=== PATIENT | female | born 1945 | race Caucasian/White ===

== ENCOUNTER 2019-07-10 14:22 | Inpatient (IN) | payer MEDICARE ==
--- NOTE | 2019-07-10 15:18 | EDM.PDOC ---
ED HPI GENERAL MEDICAL PROBLEM - General Chief Complaint: General Stated Complaint: MED[facility] Time Seen by Provider: 07/10/19 15:08 Source of Information: Reports: Patient, Family History Limitations: Reports: No Limitations - History of Present Illness INITIAL COMMENTS - FREE TEXT/NARRATIVE: 74-year-old female brought in by ambulance with worsening weakness, inflammatory ulcerations of the lower extremities, perineal inflammation, and generalized malaise over the past couple of weeks. She did not have any problems with lower extremity edema or rash until 10-14 days ago after she "scrubbed her legs in the shower". She does have diabetes but does not check her glucose levels. She is on oral medication only. She has not been hospitalized for many years, has not seen her primary doctor in 6 months. She is new to the area and looking for a new physician. No fevers or chills, she denies shortness of breath unless active. No chest pain. No nausea vomiting diarrhea or gastrointestinal symptoms. Onset: Gradual Duration: Week(s): (2) Associated Symptoms: Reports: Malaise, Weakness. Denies: Confusion, Chest Pain , Cough, Fever/Chills, Nausea/Vomiting, Shortness of Breath Buttock Pain Score (Numeric/FACES): 2 Right Lower Leg Pain Score (Numeric/FACES): 5 - Related Data Allergies Allergy/AdvReac Type Severity Reaction Status Date / Time niacin Allergy Respiratory Verified 07/10/19 19:27 Distress Home Meds: Home Meds Lisinopril 20 tab PO DAILY 07/10/19 [History] atorvaSTATin Calcium [Atorvastatin Calcium] 40 mg PO DAILY 07/10/19 [History] glipiZIDE [Glipizide ER] 1 tab PO DAILY 07/10/19 [History] hydroCHLOROthiazide [Hydrochlorothiazide] 1 tab PO DAILY 07/10/19 [History] metFORMIN HCl [Metformin HCl] 1,000 mg PO BID 07/10/19 [History] Past Medical History HEENT History: Reports: Impaired Vision Cardiovascular History: Reports: High Cholesterol, Hypertension Gastrointestinal History: Reports: Other (See Below) Other Gastrointestinal History: colo guard negative 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: Musculoskeletal History: Reports: Fracture Other Musculoskeletal History: foot fx, l shoulder fx r hand fx Psychiatric History: Reports: Anxiety Endocrine/Metabolic History: Reports: Diabetes, Type II - Infectious Disease History Infectious Disease History: Reports: Chicken Pox, Measles - Past Surgical History HEENT Surgical History: Reports: Tonsillectomy Dermatological Surgical History: Reports: Other (See Below) Social & Family History - Tobacco Use Smoking Status *Q: Former Smoker Years of Tobacco use: 50 Packs/Tins Daily: 1 Used Tobacco, but Quit: No Second Hand Smoke Exposure: Yes - Caffeine Use Caffeine Use: Reports: Coffee, Soda, Tea - Recreational Drug Use Recreational Drug Use: No ED ROS GENERAL - Review of Systems Review Of Systems: See Below Constitutional: Reports: Malaise. Denies: Fever, Chills HEENT: Denies: Throat Pain Respiratory: Reports: Shortness of Breath (Some shortness of breath with activity) Cardiovascular: Reports: Palpitations. Denies: Chest Pain GI/Abdominal: Denies: Abdominal Pain, Nausea, Vomiting Skin: Reports: Other (Diffuse erythema of the perineal area, erythema with shallow wet ulcerations of both lower extremities.) Neurological: Reports: Weakness. Denies: Headache, Paresthesia Psychiatric: Reports: No Symptoms ED EXAM, GENERAL - Physical Exam Exam: See Below Exam Limited By: No Limitations General Appearance: Alert, No Apparent Distress Eye Exam: Bilateral Eye: EOMI (No jaundice) Head: Atraumatic Respiratory/Chest: No Respiratory Distress, Decreased Breath Sounds (Some decreased breath sounds in the bases, somewhat worse on the right) Cardiovascular: Regular Rate, Rhythm. No: Extra Beats GI/Abdominal: Soft, Non-Tender Extremities: Other (Pitting edema from the groin through the toes bilaterally, cool to touch and decreased pulses in both feet. Erythema with fairly large shallow ulcerations that are moist on both lower extremities.) Neurological: Alert, Oriented, No Motor/Sensory Deficits (Denies sensory deficiencies of the feet with palpation). No: Disoriented, Slow to Respond Psychiatric: Normal Affect, Normal Mood Skin Exam: Erythema (Very malodorous, widespread erythema of the groin and perineum. Creases actually look less involved than surface skin.) Course - Vital Signs Last Recorded V/S: Last Vital Signs Temp 96.7 F 07/11/19 03:00 Pulse 95 07/11/19 03:00 Resp 20 07/11/19 03:00 BP 98/55 L 07/11/19 03:00 Pulse Ox 93 L 07/11/19 03:00 - Orders/Labs/Meds Orders: Medication Orders Acetaminophen (Tylenol) 650 mg PO Q4H PRN PRN Reason: Pain (Mild 1-3)/fever Last Admin: 07/11/19 03:48 Dose: 650 mg Admin: 07/10/19 20:08 Dose: 650 mg Albuterol (Proventil Neb Soln) 2.5 mg NEB Q4H PRN PRN Reason: Shortness Of Breath/wheezing Atorvastatin Calcium (Lipitor) 40 mg PO DAILY [facility] Dimethicone/Zinc Oxide (Rash Relief-Zinc Oxide Jeannette) 0 gm TOP Q2H PRN PRN Reason: groin rash Last Admin: 07/10/19 20:10 Dose: 1 applic Enoxaparin Sodium (Lovenox) 40 mg SUBCUT DAILY [facility] Glipizide (Glucotrol Xl) 10 mg PO DAILY [facility] Magnesium Hydroxide (Milk Of Magnesia) 30 ml PO Q12H PRN PRN Reason: Constipation Melatonin (Melatonin) 9 mg PO BEDTIME PRN PRN Reason: Sleep Last Admin: 07/10/19 23:29 Dose: 9 mg Metformin HCl (Glucophage) 1,000 mg PO BIDMEALS [facility] Nicotine (Habitrol) 14 mg TRDERM DAILY PRN PRN Reason: nicotine craving Last Admin: 07/10/19 20:09 Dose: 14 mg Ondansetron HCl (Zofran Odt) 4 mg PO Q6H PRN PRN Reason: Nausea able to take PO Ondansetron HCl (Zofran) 4 mg IV Q6H PRN PRN Reason: Nausea/Vomiting Oxycodone HCl (Oxycodone) 5 mg PO Q4H PRN PRN Reason: Pain (moderate 4-6) Senna/Docusate Sodium (Senna Plus) 1 tab PO BID PRN PRN Reason: Constipation Labs: Laboratory Tests 07/10/19 07/10/19 07/10/19 Range/Units 15:30 15:30 15:33 WBC 11.7 H (4.5-11.0) K/uL RBC 4.31 (3.30-5.50) M/uL Hgb 11.0 L (12.0-15.0) g/dL Hct 36.3 (36.0-48.0) % MCV 84 (80-98) fL MCH 26 L (27-31) pg MCHC 30 L (32-36) % Plt Count 220 (150-400) K/uL Neut % (Auto) 87 H (36-66) % Lymph % (Auto) 5 L (24-44) % [place] % (Auto) 9 H (2-6) % Eos % (Auto) 0 L (2-4) % Baso % (Auto) 0 (0-1) % Sodium 129 L (140-148) mmol/L Potassium 4.7 (3.6-5.2) mmol/L Chloride 94 L (100-108) mmol/L Carbon Dioxide 24 (21-32) mmol/L Anion Gap 15.7 H (5.0-14.0) mmol/L BUN 31 H (7-18) mg/dL Creatinine 0.7 (0.6-1.0) mg/dL Est Cr Clr Drug Dosing 54.08 mL/min Estimated GFR (MDRD) > 60 (>60) Glucose 180 H (74-106) mg/dL Calcium 8.3 L (8.5-10.1) mg/dL Total Bilirubin 0.5 (0.2-1.0) mg/dL AST 16 (15-37) U/L ALT 15 (12-78) U/L Alkaline Phosphatase 104 (46-116) U/L Total Protein 6.7 (6.4-8.2) g/dL Albumin 2.9 L (3.4-5.0) g/dL Globulin 3.8 H (2.3-3.5) g/dL Albumin/Globulin Ratio 0.8 L (1.2-2.2) Urine Color [place] A (YELLOW) Urine Appearance Slightly cloudy A (CLEAR) Urine pH 5.5 (5.0-8.0) Ur Specific [place] >= 1.030 (1.008-1.030) Urine Protein 30 H (NEGATIVE) mg/dL Urine Glucose (UA) Negative (NEGATIVE) mg/dL Urine Ketones Negative (NEGATIVE) mg/dL Urine Occult Blood Trace-intact H (NEGATIVE) Urine Nitrite Negative (NEGATIVE) Urine Bilirubin Small H (NEGATIVE) Urine Urobilinogen 1.0 (0.2-1.0) EU/dL Ur Leukocyte Esterase Negative (NEGATIVE) Urine RBC 5-10 H (0-5) Urine WBC 0-5 (0-5) Ur Epithelial Cells Not seen Amorphous Sediment Many Urine Bacteria Moderate Urine Mucus Not seen Meds: Medications Generic Name Dose Route Start Last Admin Trade Name Freq PRN Reason Stop Dose Admin Acetaminophen 650 mg 07/10/19 18:37 07/11/19 03:48 Tylenol PO 650 mg Q4H PRN Administration Pain (Mild 1-3)/fever Albuterol 2.5 mg 07/10/19 18:37 Proventil Neb Soln NEB Q4H PRN Shortness Of Breath/wheezing Atorvastatin Calcium 40 mg 07/11/19 09:00 Lipitor PO DAILY [facility] Dimethicone/Zinc Oxide 0 gm 07/10/19 18:37 07/10/19 20:10 Rash Relief-Zinc Oxide Jeannette TOP 1 applic Q2H PRN Administration groin rash Enoxaparin Sodium 40 mg 07/11/19 09:00 Lovenox SUBCUT DAILY [facility] Glipizide 10 mg 07/11/19 09:00 Glucotrol Xl PO DAILY [facility] Magnesium Hydroxide 30 ml 07/10/19 18:37 Milk Of Magnesia PO Q12H PRN Constipation Melatonin 9 mg 07/10/19 18:37 07/10/19 23:29 Melatonin PO 9 mg BEDTIME PRN Administration Sleep Metformin HCl 1,000 mg 07/11/19 08:00 Glucophage PO BIDMEALS [facility] Nicotine 14 mg 07/10/19 18:37 07/10/19 20:09 Habitrol TRDERM 14 mg DAILY PRN Administration nicotine craving Ondansetron HCl 4 mg 07/10/19 18:37 Zofran Odt PO Q6H PRN Nausea able to take PO Ondansetron HCl 4 mg 07/10/19 18:37 Zofran IV Q6H PRN Nausea/Vomiting Oxycodone HCl 5 mg 07/10/19 18:37 Oxycodone PO Q4H PRN Pain (moderate 4-6) Senna/Docusate Sodium 1 tab 07/10/19 18:37 Senna Plus PO BID PRN Constipation - Re-Assessments/Exams Free Text/Narrative Re-Assessment/Exam: 07/10/19 15:27 A quick catheter UA was obtained, CBC CMP and portable chest x-ray. 07/10/19 16:36 White count was 11,700, hemoglobin 11.0. Glucose 180. Kidney function is normal. Electrolytes relatively normal. An ultrasound was ordered of an atrial duplex study of both extremities. Chest x-ray revealed bilateral pleural effusions and likely at least moderate cardiomegaly. Ultrasound of the legs revealed extensive arterial disease but pulses to the feet, no complete obstruction or ischemia. Results were discussed with Dr. Moon and Dr. Mobley, and the decision was made to admit her to the hospitalist service for further evaluation and treatment. 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
--- NOTE | 2019-07-10 16:07 | CRLCR ---
Indication: Weakness. Technique: A single AP portable view of the chest was obtained. Comparison: None Findings: The heart is enlarged. Bibasilar atelectasis and/or infiltrates and small bilateral pleural effusions are identified. No pneumothorax is identified. Impression: Cardiomegaly. Bibasilar atelectasis and/or infiltrates and small bilateral pleural effusions. Dictated by Abigail Castellanos MD @ Jul 10 2019 4:04PM Signed by Dr. Abigail Castellanos @ Jul 10 2019 4:05PM
--- NOTE | 2019-07-10 17:53 | PCM.HP.2 ---
H&P History of Present Illness - General Date of Service: 07/10/19 Admit Problem/Dx: Admission Diagnosis/Problem Admission Diagnosis/Problem Foot ulcer Source of Information: Patient, Family, Provider History Limitations: Reports: No Limitations - History of Present Illness Initial Comments - Free Text/Narative: CC: my feet are bothering me HPI: Анна presents to the emergency room today with concerns that her feet are not healing and are now getting worse. She describes difficulty with redness and drainage of both feet and lower legs for about the past month and a half. Symptoms seem to start after she washed her feet with hot soapy water to clean off some loose and flaky skin. She has had progressive difficulty since that time. She does not report any pain but says that she cannot stand on her feet. There are multiple areas that are open and draining a serosanguineous fluid. She has not noticed any significant erythema or warmth. She says that she's been either bedbound or in a chair for the past several weeks. She is able to ambulate only a couple of feet at a time. She has not had any fevers. She does not report any numbness or tingling. She does endorse some dyspnea with exertion that has been present for about a month and a half. She has not had any chest pain but she does report having what she calls a panic attack. This episode was described as sudden onset of shortness of breath that lasted for less than an hour. She did not have any chest pain at that time. She has not had a return of this type of episode since then. She has not had a change in bladder habits. She did have diarrhea for the past several days and now has erythema and discomfort in her perineum. She has lost more than 50 pounds in several months but reports that she has been trying to do so to help control her diabetes. She does not check her blood sugars regularly. She has been trying to quit smoking but with all of her stress recently she has started again. She is not smoking much because she's sleeping much of the day. Appetite has been diminished. Energy has been diminished. Workup in the emergency room today revealed mild hyponatremia and a mildly elevated white blood cell count. Chest x-ray showed enlarged heart and possible small bilateral effusions. A vascular ultrasound was obtained and did not show any significant focal stenosis in the lower extremities. She will be admitted for wound care consultation and expedited workup. Buttock Pain Score (Numeric/FACES): 2 - Related Data Allergies/Adverse Reactions: Allergies Allergy/AdvReac Type Severity Reaction Status Date / Time niacin Allergy Respiratory Verified 07/10/19 14:45 Distress Home Medications: Home Meds Lisinopril 20 tab PO DAILY 07/10/19 [History] atorvaSTATin Calcium [Atorvastatin Calcium] 40 mg PO DAILY 07/10/19 [History] glipiZIDE [Glipizide ER] 1 tab PO DAILY 07/10/19 [History] hydroCHLOROthiazide [Hydrochlorothiazide] 1 tab PO DAILY 07/10/19 [History] metFORMIN HCl [Metformin HCl] 1,000 mg PO BID 07/10/19 [History] Past Medical History HEENT History: Reports: Impaired Vision Cardiovascular History: Reports: High Cholesterol, Hypertension Gastrointestinal History: Reports: Other (See Below) Other Gastrointestinal History: colo guard negative 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: Musculoskeletal History: Reports: Fracture Other Musculoskeletal History: foot fx, l shoulder fx r hand fx Psychiatric History: Reports: Anxiety Endocrine/Metabolic History: Reports: Diabetes, Type II - Infectious Disease History Infectious Disease History: Reports: Chicken Pox, Measles - Past Surgical History HEENT Surgical History: Reports: Tonsillectomy Dermatological Surgical History: Reports: Other (See Below) Social & Family History - Family History Endocrine/Metabolic: Reports: Diabetes, type II (mother) - Tobacco Use Smoking Status *Q: Former Smoker Years of Tobacco use: 50 Packs/Tins Daily: 1 Used Tobacco, but Quit: No Second Hand Smoke Exposure: Yes - Caffeine Use Caffeine Use: Reports: Coffee, Soda, Tea - Alcohol Use Alcohol Use History: No - Recreational Drug Use Recreational Drug Use: No H&P Review of Systems - Review of Systems: Review Of Systems: See Below Free Text/Narrative: A complete 12 point review of systems was obtained. Pertinent positives and negatives are noted in the history of present illness. All other systems were reviewed and were negative except as noted. Exam - Exam Exam: See Below - Vital Signs Vital Signs: Last Vital Signs Temp 36.6 C 07/10/19 17:09 Pulse 108 H 07/10/19 17:09 Resp 16 07/10/19 17:09 BP 120/75 07/10/19 17:09 Pulse Ox 95 07/10/19 17:09 Weight: 603.278 kg - Exam Quality Assessment: No: Supplemental Oxygen General: Alert, Oriented, Cooperative. No: Mild Distress HEENT: Conjunctiva Clear. No: Mucosa Moist & Standing [place] (dry), Scleral Icterus Neck: Supple, Trachea Midline. No: Lymphadenopathy, JVD, Thyromegaly Lungs: Clear to Auscultation, Normal Respiratory Effort. No: Wheezing Cardiovascular: Regular Rhythm, Tachycardia. No: Systolic Murmur GI/Abdominal Exam: Normal Bowel Sounds, Soft, Non-Tender, No Distention, No Mass Back Exam: Other (kyophosis ). No: Full Range of Motion Extremities: Other (both feet and lower legs redened and cold. Multiple ulcrations on lower legs, dorsum of feet and plantar surfaces of feet, clement left foot near toes). No: Normal Capillary Refill, Pedal Edema, Increased Warmth Peripheral Pulses: 0: Dorsalis Pedis (L), Dorsalis Pedis (R) Skin: Dry. No: Rash Neuro Extensive - Mental Status: Alert, Oriented x3, Nl Response to Commands Neuro Extensive - Motor, Sensory, Reflexes: No: Dysarthria, Abnormal Motor, Tremor Psychiatric: Alert, Normal Affect - Patient Data Lab Results Last 24 hrs: Laboratory Results - last 24 hr 07/10/19 07/10/19 07/10/19 Range/Units 15:30 15:30 15:33 WBC 11.7 H (4.5-11.0) K/uL RBC 4.31 (3.30-5.50) M/uL Hgb 11.0 L (12.0-15.0) g/dL Hct 36.3 (36.0-48.0) % MCV 84 (80-98) fL MCH 26 L (27-31) pg MCHC 30 L (32-36) % Plt Count 220 (150-400) K/uL Neut % (Auto) 87 H (36-66) % Lymph % (Auto) 5 L (24-44) % [place] % (Auto) 9 H (2-6) % Eos % (Auto) 0 L (2-4) % Baso % (Auto) 0 (0-1) % Sodium 129 L (140-148) mmol/L Potassium 4.7 (3.6-5.2) mmol/L Chloride 94 L (100-108) mmol/L Carbon Dioxide 24 (21-32) mmol/L Anion Gap 15.7 H (5.0-14.0) mmol/L BUN 31 H (7-18) mg/dL Creatinine 0.7 (0.6-1.0) mg/dL Est Cr Clr Drug Dosing 54.08 mL/min Estimated GFR (MDRD) > 60 (>60) Glucose 180 H (74-106) mg/dL Calcium 8.3 L (8.5-10.1) mg/dL Total Bilirubin 0.5 (0.2-1.0) mg/dL AST 16 (15-37) U/L ALT 15 (12-78) U/L Alkaline Phosphatase 104 (46-116) U/L Total Protein 6.7 (6.4-8.2) g/dL Albumin 2.9 L (3.4-5.0) g/dL Globulin 3.8 H (2.3-3.5) g/dL Albumin/Globulin Ratio 0.8 L (1.2-2.2) Urine Color [place] A (YELLOW) Urine Appearance Slightly cloudy A (CLEAR) Urine pH 5.5 (5.0-8.0) Ur Specific [place] >= 1.030 (1.008-1.030) Urine Protein 30 H (NEGATIVE) mg/dL Urine Glucose (UA) Negative (NEGATIVE) mg/dL Urine Ketones Negative (NEGATIVE) mg/dL Urine Occult Blood Trace-intact H (NEGATIVE) Urine Nitrite Negative (NEGATIVE) Urine Bilirubin Small H (NEGATIVE) Urine Urobilinogen 1.0 (0.2-1.0) EU/dL Ur Leukocyte Esterase Negative (NEGATIVE) Urine RBC 5-10 H (0-5) Urine WBC 0-5 (0-5) Ur Epithelial Cells Not seen Amorphous Sediment Many Urine Bacteria Moderate Urine Mucus Not seen Result Diagrams: 07/10/19 15:30 07/10/19 15:30 Imaging Impressions Last 24 hrs: CXR - images personally reviewed - heart size enlarged, small effusions possible in both lower lungs. No obvious mass or infiltrate. no comparison available. *Q Meaningful Use (ADM) - VTE *Q VTE Mechanical Contraindications *Q: Bilateral Lower Dermatits - VTE Risk Assess *Q Each Risk Factor Represents 1 Point: Swollen Legs, Current Total Score 1 Point Risk Factors: 1 Each Risk Factor Represents 2 Points: None Total Score 2 Point Risk Factors: 0 Each Risk Factor Represents 3 Points: Age 75 Years or Greater Total Score 3 Point Risk Factors: 3 Each Risk Factor Represents 5 Points: None Total Score 5 Point Risk Factors: 0 Venous Thromboembolism Risk Factor Score *Q: 4 - Problem List (1) Foot ulcer due to secondary DM SNOMED Code(s): 0822091 ICD Code: E13.621 - OTHER SPECIFIED DIABETES MELLITUS WITH FOOT ULCER; L97.509 - NON-PRESSURE CHRONIC ULCER OTH PRT UNSP FOOT W UNSP SEVERITY Status : Acute Current Visit: Yes (2) Weight loss, unintentional SNOMED Code(s): 659444870 ICD Code: R63.4 - ABNORMAL WEIGHT LOSS Status: Acute Current Visit: Yes (3) Diabetes mellitus type II, controlled SNOMED Code(s): 92646029, 309174957 ICD Code: E11.9 - TYPE 2 DIABETES MELLITUS WITHOUT COMPLICATIONS Status: Chronic Current Visit: Yes Qualifiers: Diabetes mellitus long term care social worker insulin use: without long term care social worker use Diabetes mellitus complication status: with unspecified complications Qualified Code(s) : E11.8 - Type 2 diabetes mellitus with unspecified complications (4) Tobacco dependence syndrome SNOMED Code(s): 30582496 ICD Code: F17.200 - NICOTINE DEPENDENCE, UNSPECIFIED, UNCOMPLICATED Status : Chronic Current Visit: Yes Problem List Initiated/Reviewed/Updated: Yes Orders Last 24hrs: Active Orders 24 hr Category Date Time Status Patient Status Manage Transfer [TRANSFER] Routine ADT 07/10/19 17:39 Ordered VL Duplex Lwr Ext Art Comp Bi [US] Stat Exams 07/10/19 16:04 Taken Resuscitation Status Routine Resus Stat 07/10/19 17:40 Ordered Assessment/Plan Comment:: ASSESSMENT AND PLAN - Bilateral lower extremity dermatitis with ulceration - initially there was concern for ischemia but no focal stenosis found with the vascular ultrasound. Proximal lower extremities are warm and well-perfused. She may still have a more proximal obstruction. This does not quite fit the picture for congestive heart failure. Vasculitis presentation would be atypical. This may be a chemical burn resulting from her cleansing of her lower extremities 6 weeks ago. -Wound care consultation with Dr. Moon in the morning -Echocardiogram to look for evidence for congestive heart failure -SADIE and ANCA to look for possible vasculitis -Sedimentation rate and CRP Weight loss, somewhat unintentional - patient reports she has been trying to lose weight but has lost more than 50 pounds in just a few months. I do have some concerns that there may be an occult malignancy but no specific symptoms to point towards a location. No obvious lung cancer noted on chest x-ray. -TSH and inflammatory markers as above Type 2 diabetes mellitus - patient denies symptoms but I suspect there may be a component of neuropathy with no significant pain in her lower extremities. She reports good control by history. -Continue home medications -A1c in the morning Tobacco dependence - patient had a period of cessation but has started again because of stressors. -Encourage cessation -Nicotine patch Maintenance issues - - DVT prophylaxis - enoxaparin - GI prophylaxis - not indicated - Nutrition - diabetic diet - Encinas catheter - not indicated CODE STATUS - DNR/DNI Admission justification - patient will be referred to observation for expedited workup and wound care consultation Disposition - I would anticipate discharge home after the hospital stay Primary care physician - no local primary care as of yet Jarek Mobley M.D. - Mortality Measure Prognosis:: Good
--- NOTE | 2019-07-10 18:03 | CRLUS ---
INDICATION: Lack of vascular flow, and ischemic changes in the feet. COMPARISON: None available. TECHNIQUE: Duplex arterial ultrasound examination of bilateral lower extremities was performed with 2D and spectral analysis and color Doppler imaging. FINDINGS: In the right lower extremity there is a biphasic waveform in the common femoral artery. A large coral reef plaque with within the distal common femoral artery, or at the origin of the SFA is seen which obscures the majority of the vessel, and appears to significantly narrow the vessel in that location. There is however only a focal velocity shift of slightly greater than 2-1 in that location. In addition multiphasic waveforms are seen within the SFA. Biphasic waveform at the origin of the profunda femoral artery. Multiphasic waveforms also seen in the popliteal artery. The posterior tibial artery demonstrates multiphasic waveforms. Low velocity biphasic waveforms are seen in the distal anterior tibia artery (11.2 cm/sec). Monophasic waveforms are seen in the dorsalis pedis artery. Rim calcified vessels are seen predominantly in the lower extremity/calf. Minimal if any detectable flow seen in the peroneal artery. Extensive subcutaneous edema is seen in the posterior aspect of the knee, and within the calf. In the left lower extremity biphasic waveforms are seen in the common femoral artery, and within the SFA. No focal velocities shifts were detected. Biphasic waveform at the origin of the profunda femoral artery. Biphasic waveforms are seen in the popliteal artery. Biphasic waveforms are seen in the posterior tibial artery proximally with monophasic waveforms distally. Biphasic waveforms are seen in the distal anterior tibial artery with a velocity of 21.7 cm/second with very dampened monophasic waveform seen in the dorsalis pedis artery. Minimal if any detectable flow seen in the peroneal artery. Rim calcified vessels are seen predominantly in the lower extremity/calf. Extensive subcutaneous edema is seen in the posterior aspect of the knee, and within the calf. IMPRESSION: 1. Atherosclerotic disease. 2. Approximately moderate severity stenosis by ultrasound in the proximal right SFA or distal common femoral artery due to coral reef plaque. 3. Bilateral lower extremity runoff disease. 4. Extensive subcutaneous edema in the posterior knee and calf. Dictated by Tonio Helm MD @ Jul 10 2019 5:53PM (Electronically Signed)
[2019-07-10] MEDS ORDERED: Albuterol 0.083% 2.5 MG/3 ML Neb Soln NEB PRN (18:37)
[2019-07-10] MEDS ORDERED: Magnesium Hydroxide 400 MG/5 ML Susp 30 ML Cup PO PRN (18:37)
[2019-07-10] MEDS ORDERED: Dimethicone 20%/Zinc Oxide 25% 56 GM Spray Bottle TOP PRN (18:37)
[2019-07-10] MEDS ORDERED: Ondansetron 4 MG/2 ML SDV IV PRN (18:37)
[2019-07-10] MEDS ORDERED: oxyCODONE 5 MG Tab PO PRN (18:37)
[2019-07-10] MEDS ORDERED: Ondansetron 4 MG Tab.DIS PO PRN (18:37)
[2019-07-10] MEDS: Acetaminophen 325 MG Tab PO PRN (20:08)
[2019-07-10] MEDS: Nicotine 14 MG/24 Hr Patch TRDERM PRN (20:09)
[2019-07-10] MEDS: Melatonin 3 MG Tab PO PRN (23:29)
[2019-07-11] MEDS: Acetaminophen 325 MG Tab PO PRN (03:48)
[2019-07-11] MEDS ORDERED: glipiZIDE 5 MG Tab.ER PO SCH (08:00)
[2019-07-11] MEDS ORDERED: metFORMIN 500 MG Tab PO SCH (08:00)
[2019-07-11] MEDS: GLIPIZIDE 10 MG PO SCH (08:42)
[2019-07-11] MEDS: Enoxaparin 40 MG/0.4 ML Syringe SUBCUT SCH (08:43)
[2019-07-11 09:53] LABS: HEMOGLOBIN A1C 7.4 % (4.5-6.2)
--- NOTE | 2019-07-11 10:05 | PCM.PN ---
- General Info Date of Service: 07/11/19 Subjective Update: No acute events overnight following admission. She did have one episode of mild pain in her feet but this is better. Did not sleep well because of an uncomfortable bed. She did not have any fevers. No complaints of abdominal pain or nausea. She was seen by Dr. Moon this morning. Functional Status: Reports: Pain Controlled, Tolerating Diet - Review of Systems General: Denies: Fever Pulmonary: Reports: Shortness of Breath Musculoskeletal: Reports: Foot Pain - Patient Data Vitals - Most Recent: Last Vital Signs Temp 36.5 C 07/11/19 07:00 Pulse 89 07/11/19 07:00 Resp 18 07/11/19 07:00 BP 93/54 L 07/11/19 07:00 Pulse Ox 93 L 07/11/19 07:00 Weight - Most Recent: 63.004 kg I&O - Last 24 Hours: Intake & Output 07/10/19 07/11/19 07/11/19 22:59 06:59 14:59 Output Total 125 Balance -125 Lab Results Last 24 Hours: Laboratory Results - last 24 hr 07/10/19 07/10/19 07/10/19 Range/Units 15:30 15:30 15:33 WBC 11.7 H (4.5-11.0) K/uL RBC 4.31 (3.30-5.50) M/uL Hgb 11.0 L (12.0-15.0) g/dL Hct 36.3 (36.0-48.0) % MCV 84 (80-98) fL MCH 26 L (27-31) pg MCHC 30 L (32-36) % Plt Count 220 (150-400) K/uL Neut % (Auto) 87 H (36-66) % Lymph % (Auto) 5 L (24-44) % [place] % (Auto) 9 H (2-6) % Eos % (Auto) 0 L (2-4) % Baso % (Auto) 0 (0-1) % ESR (0-25) mm/hr Sodium 129 L (140-148) mmol/L Potassium 4.7 (3.6-5.2) mmol/L Chloride 94 L (100-108) mmol/L Carbon Dioxide 24 (21-32) mmol/L Anion Gap 15.7 H (5.0-14.0) mmol/L BUN 31 H (7-18) mg/dL Creatinine 0.7 (0.6-1.0) mg/dL Est Cr Clr Drug Dosing 54.08 mL/min Estimated GFR (MDRD) > 60 (>60) Glucose 180 H (74-106) mg/dL Calcium 8.3 L (8.5-10.1) mg/dL Total Bilirubin 0.5 (0.2-1.0) mg/dL AST 16 (15-37) U/L ALT 15 (12-78) U/L Alkaline Phosphatase 104 (46-116) U/L C-Reactive Protein (0.0-0.3) mg/dL Total Protein 6.7 (6.4-8.2) g/dL Albumin 2.9 L (3.4-5.0) g/dL Globulin 3.8 H (2.3-3.5) g/dL Albumin/Globulin Ratio 0.8 L (1.2-2.2) TSH, Ultra Sensitive (0.358-3.740) uIU/mL Urine Color [place] A (YELLOW) Urine Appearance Slightly cloudy A (CLEAR) Urine pH 5.5 (5.0-8.0) Ur Specific [place] >= 1.030 (1.008-1.030) Urine Protein 30 H (NEGATIVE) mg/dL Urine Glucose (UA) Negative (NEGATIVE) mg/dL Urine Ketones Negative (NEGATIVE) mg/dL Urine Occult Blood Trace-intact H (NEGATIVE) Urine Nitrite Negative (NEGATIVE) Urine Bilirubin Small H (NEGATIVE) Urine Urobilinogen 1.0 (0.2-1.0) EU/dL Ur Leukocyte Esterase Negative (NEGATIVE) Urine RBC 5-10 H (0-5) Urine WBC 0-5 (0-5) Ur Epithelial Cells Not seen Amorphous Sediment Many Urine Bacteria Moderate Urine Mucus Not seen 07/11/19 07/11/19 Range/Units 04:00 04:00 WBC 12.7 H (4.5-11.0) K/uL RBC 4.33 (3.30-5.50) M/uL Hgb 11.1 L (12.0-15.0) g/dL Hct 36.6 (36.0-48.0) % MCV 85 (80-98) fL MCH 26 L (27-31) pg MCHC 30 L (32-36) % Plt Count 217 (150-400) K/uL Neut % (Auto) (36-66) % Lymph % (Auto) (24-44) % [place] % (Auto) (2-6) % Eos % (Auto) (2-4) % Baso % (Auto) (0-1) % ESR 20 (0-25) mm/hr Sodium 129 L (140-148) mmol/L Potassium 4.8 (3.6-5.2) mmol/L Chloride 94 L (100-108) mmol/L Carbon Dioxide 25 (21-32) mmol/L Anion Gap 14.8 H (5.0-14.0) mmol/L BUN 34 H (7-18) mg/dL Creatinine 0.8 (0.6-1.0) mg/dL Est Cr Clr Drug Dosing 47.32 mL/min Estimated GFR (MDRD) > 60 (>60) Glucose 189 H (74-106) mg/dL Calcium 8.5 (8.5-10.1) mg/dL Total Bilirubin (0.2-1.0) mg/dL AST (15-37) U/L ALT (12-78) U/L Alkaline Phosphatase (46-116) U/L C-Reactive Protein 5.43 H (0.0-0.3) mg/dL Total Protein (6.4-8.2) g/dL Albumin (3.4-5.0) g/dL Globulin (2.3-3.5) g/dL Albumin/Globulin Ratio (1.2-2.2) TSH, Ultra Sensitive 0.966 (0.358-3.740) uIU/mL Urine Color (YELLOW) Urine Appearance (CLEAR) Urine pH (5.0-8.0) Ur Specific [place] (1.008-1.030) Urine Protein (NEGATIVE) mg/dL Urine Glucose (UA) (NEGATIVE) mg/dL Urine Ketones (NEGATIVE) mg/dL Urine Occult Blood (NEGATIVE) Urine Nitrite (NEGATIVE) Urine Bilirubin (NEGATIVE) Urine Urobilinogen (0.2-1.0) EU/dL Ur Leukocyte Esterase (NEGATIVE) Urine RBC (0-5) Urine WBC (0-5) Ur Epithelial Cells Amorphous Sediment Urine Bacteria Urine Mucus Med Orders - Current: Current Medications Acetaminophen (Tylenol) 650 mg PO Q4H PRN PRN Reason: Pain (Mild 1-3)/fever Last Admin: 07/11/19 03:48 Dose: 650 mg Albuterol (Proventil Neb Soln) 2.5 mg NEB Q4H PRN PRN Reason: Shortness Of Breath/wheezing Dimethicone/Zinc Oxide (Rash Relief-Zinc Oxide [place]) 0 gm TOP Q2H PRN PRN Reason: groin rash Last Admin: 07/10/19 20:10 Dose: 1 applic Enoxaparin Sodium (Lovenox) 40 mg SUBCUT DAILY [facility] Last Admin: 07/11/19 08:43 Dose: 40 mg Cefazolin Sodium/Dextrose 1 gm (/ Premix) 50 mls @ 100 mls/hr IV Q8H [facility] Magnesium Hydroxide (Milk Of Magnesia) 30 ml PO Q12H PRN PRN Reason: Constipation Melatonin (Melatonin) 9 mg PO BEDTIME PRN PRN Reason: Sleep Last Admin: 07/10/19 23:29 Dose: 9 mg Nicotine (Habitrol) 14 mg TRDERM DAILY PRN PRN Reason: nicotine craving Last Admin: 07/10/19 20:09 Dose: 14 mg Atorvastatin 40mg * (Pom*) 1 each PO DAILY [facility] Last Admin: 07/11/19 08:42 Dose: 1 each Glipizide Er 10mg * (Pom*) 1 each PO DAILY@0800 [facility] Last Admin: 07/11/19 08:42 Dose: 1 each Metformin 1000mg * (Pom*) 1 each PO BIDMEALS [facility] Last Admin: 07/11/19 08:42 Dose: 1 each Ondansetron HCl (Zofran Odt) 4 mg PO Q6H PRN PRN Reason: Nausea able to take PO Ondansetron HCl (Zofran) 4 mg IV Q6H PRN PRN Reason: Nausea/Vomiting Oxycodone HCl (Oxycodone) 5 mg PO Q4H PRN PRN Reason: Pain (moderate 4-6) Senna/Docusate Sodium (Senna Plus) 1 tab PO BID PRN PRN Reason: Constipation Discontinued Medications Glipizide (Glucotrol Xl) 10 mg PO DAILY@0800 [facility] Metformin HCl (Glucophage) 1,000 mg PO BIDMEALS ANNIE - Exam Quality Assessment: Supplemental Oxygen General: Alert, Oriented, Cooperative, No Acute Distress Lungs: Clear to Auscultation, Normal Respiratory Effort Cardiovascular: Regular Rate, Regular Rhythm, Murmurs GI/Abdominal Exam: Soft, No Distention Extremities: No Pedal Edema. No: Increased Warmth Skin: Warm, Dry Psy/Mental Status: Alert, Normal Affect - Problem List & Annotations (1) Foot ulcer due to secondary DM SNOMED Code(s): 8867414 Code(s): E13.621 - OTHER SPECIFIED DIABETES MELLITUS WITH FOOT ULCER; L97.509 - NON-PRESSURE CHRONIC ULCER OTH PRT UNSP FOOT W UNSP SEVERITY Status : Acute Current Visit: Yes (2) Weight loss, unintentional SNOMED Code(s): 471940785 Code(s): R63.4 - ABNORMAL WEIGHT LOSS Status: Acute Current Visit: Yes (3) Diabetes mellitus type II, controlled SNOMED Code(s): 13506099, 573116798 Code(s): E11.9 - TYPE 2 DIABETES MELLITUS WITHOUT COMPLICATIONS Status: Chronic Current Visit: Yes Qualifiers: Diabetes mellitus detention insulin use: without detention use Diabetes mellitus complication status: with unspecified complications Qualified Code(s) : E11.8 - Type 2 diabetes mellitus with unspecified complications (4) Tobacco dependence syndrome SNOMED Code(s): 70250840 Code(s): F17.200 - NICOTINE DEPENDENCE, UNSPECIFIED, UNCOMPLICATED Status: Chronic Current Visit: Yes - Problem List Review Problem List Initiated/Reviewed/Updated: Yes - My Orders Last 24 Hours: My Active Orders 07/10/19 17:40 Resuscitation Status Routine 07/10/19 18:37 Patient Status [ADT] Routine Intake and Output [RC] QSHIFT Notify Provider Consults [RC] ASDIRECTED Notify Provider Vital Signs [RC] ASDIRECTED Oxygen Therapy [RC] PRN RT Aerosol Therapy [RC] ASDIRECTED Up With Assistance [RC] ASDIRECTED VTE/DVT Education [RC] Per Unit Routine Vital Signs [RC] Q4H Consult to Physician [CONS] Routine Acetaminophen [Tylenol] 650 mg PO Q4H PRN Albuterol [Proventil Neb Soln] 2.5 mg NEB Q4H PRN Dimethicone/Zinc Oxide [Rash Relief-Zinc Oxide [place]] 0 gm TOP Q2H PRN Docusate Sodium/Sennosides [Senna Plus] 1 tab PO BID PRN Magnesium Hydroxide [Milk of Magnesia] 30 ml PO Q12H PRN Melatonin 9 mg PO BEDTIME PRN Nicotine [Habitrol] 14 mg TRDERM DAILY PRN Ondansetron [Zofran ODT] 4 mg PO Q6H PRN Ondansetron [Zofran] 4 mg IV Q6H PRN oxyCODONE 5 mg PO Q4H PRN VTE Mechanical Contraindications [AST] Routine 07/10/19 Dinner Consistent Carbohydrate Diet [DIET] 07/11/19 04:00 GLYCOSYLATED HEMOGLOBIN,HGBA1C [CHEM] AM 07/11/19 05:11 SADIE W/REFLEX AM ANCA PANEL AM 07/11/19 07:00 Echo Comp wo Cont [US] Routine 07/11/19 08:30 Non-Formulary Medication [NF Drug] 1 each PO BIDMEALS Non-Formulary Medication [NF Drug] 1 each PO DAILY@0800 07/11/19 09:00 Enoxaparin [Lovenox] 40 mg SUBCUT DAILY Non-Formulary Medication [NF Drug] 1 each PO DAILY 07/11/19 10:02 PT Evaluation and Treatment [CONS] Routine 07/11/19 10:03 Discontinue Telemetry Monitoring [Cardiac Monitoring Discontinue] [RC] Click to Edit 07/11/19 10:04 PROCALCITONIN [CHEM] Routine 07/12/19 05:00 BASIC METABOLIC PANEL,BMP [CHEM] Timed CBC W/O DIFF,HEMOGRAM [HEME] Timed (1) 07/12/19 07:00 Echo Comp wo Cont [US] Routine - Plan Plan:: ASSESSMENT AND PLAN - Bilateral lower extremity dermatitis with ulceration - concern for progression to critical limb ischemia. Moderate proximal obstruction and significant distal/ runoff disease. Discussed with interventional radiology in [place] and they did recommend follow-up for intervention in the near future (1 or 2 weeks). Pro- calcitonin normal but IR did recommend prophylactic antibiotics with poor blood flow. Sedimentation rate normal so vasculitis unlikely. CRP moderately elevated. -Wound care consultation with Dr. Moon -Empiric cefazolin while hospitalized and cephalexin after discharge -Echocardiogram to look for evidence for congestive heart failure -SADIE and ANCA pending -Outpatient follow-up with interventional radiology next week ([phone] - IR appt at time of d/c) -Physical therapy Weight loss, somewhat unintentional - patient reports she has been trying to lose weight but has lost more than 50 pounds in just a few months.Thyroid testing is normal. Type 2 diabetes mellitus - patient denies symptoms but I suspect there may be a component of neuropathy with no significant pain in her lower extremities. Hemoglobin A1c is 7.4. -Continue home medications Tobacco dependence - patient had a period of cessation but has started again because of stressors. -Encourage cessation -Nicotine patch Maintenance issues - - DVT prophylaxis - enoxaparin - GI prophylaxis - not indicated - Nutrition - diabetic diet Admission justification - patient will be referred to observation for expedited workup and wound care consultation Disposition - I would anticipate discharge home after the hospital stay, likely tomorrow if stable overnight Primary care physician - no local primary care as of yet Jarek Mobley M.D.
[2019-07-11] MEDS: ceFAZolin 1 GM in Premix Bag 1 BAG IV SCH ×2 (10:24→17:09)
[2019-07-12] MEDS: ceFAZolin 1 GM in Premix Bag 1 BAG IV SCH ×2 (01:59→08:58)
[2019-07-12] MEDS: Enoxaparin 40 MG/0.4 ML Syringe SUBCUT SCH (08:57)
[2019-07-12] MEDS: GLIPIZIDE 10 MG PO SCH (08:57)
[2019-07-12] MEDS: Acetaminophen 325 MG Tab PO PRN ×2 (08:58→22:20)
[2019-07-12] MEDS ORDERED: Furosemide 40 MG/4 ML VIAL IVPUSH ONE (10:50)
--- NOTE | 2019-07-12 14:18 | PCM.PN ---
- General Info Date of Service: 07/12/19 Subjective Update: There were no acute events overnight. He shouldn't intermittently has some mild pain in both of her lower extremities. She does continue to require supplemental oxygen. She feels short of breath but has not had chest pain. Echocardiogram this morning showed mildly reduced systolic function, severe aortic stenosis, moderate aortic insufficiency, severe mitral and tricuspid insufficiency as well as mild inferolateral wall motion abnormalities. I did talk to cardiothoracic surgery team at [facility] in [place]. They recommended outpatient cardiology evaluation and consideration for surgical intervention. Functional Status: Reports: Pain Controlled, Tolerating Diet - Review of Systems General: Reports: Weakness Pulmonary: Reports: Shortness of Breath - Patient Data Vitals - Most Recent: Last Vital Signs Temp 36.8 C 07/12/19 10:42 Pulse 93 07/12/19 10:42 Resp 20 07/12/19 10:42 BP 91/56 L 07/12/19 10:42 Pulse Ox 98 07/12/19 10:42 Weight - Most Recent: 63.004 kg I&O - Last 24 Hours: Intake & Output 07/11/19 07/12/19 07/12/19 22:59 06:59 14:59 Intake Total 530 50 350 Output Total 100 150 200 Balance 430 -100 150 Lab Results Last 24 Hours: Laboratory Results - last 24 hr 07/12/19 07/12/19 Range/Units 04:24 04:24 WBC 9.2 (4.5-11.0) K/uL RBC 4.24 (3.30-5.50) M/uL Hgb 10.6 L (12.0-15.0) g/dL Hct 36.1 (36.0-48.0) % MCV 85 (80-98) fL MCH 25 L (27-31) pg MCHC 29 L (32-36) % Plt Count 216 (150-400) K/uL Sodium 130 L (140-148) mmol/L Potassium 4.9 (3.6-5.2) mmol/L Chloride 95 L (100-108) mmol/L Carbon Dioxide 26 (21-32) mmol/L Anion Gap 13.9 (5.0-14.0) mmol/L BUN 38 H (7-18) mg/dL Creatinine 0.9 (0.6-1.0) mg/dL Est Cr Clr Drug Dosing 42.06 mL/min Estimated GFR (MDRD) > 60 (>60) Glucose 134 H (74-106) mg/dL Calcium 8.4 L (8.5-10.1) mg/dL Med Orders - Current: Current Medications Acetaminophen (Tylenol) 650 mg PO Q4H PRN PRN Reason: Pain (Mild 1-3)/fever Last Admin: 07/12/19 08:58 Dose: 650 mg Albuterol (Proventil Neb Soln) 2.5 mg NEB Q4H PRN PRN Reason: Shortness Of Breath/wheezing Dimethicone/Zinc Oxide (Rash Relief-Zinc Oxide [place]) 0 gm TOP Q2H PRN PRN Reason: groin rash Last Admin: 07/10/19 20:10 Dose: 1 applic Enoxaparin Sodium (Lovenox) 40 mg SUBCUT DAILY [facility] Last Admin: 07/12/19 08:57 Dose: 40 mg Cefazolin Sodium/Dextrose 1 gm (/ Premix) 50 mls @ 100 mls/hr IV Q8H [facility] Stop: 07/12/19 16:00 Last Admin: 07/12/19 08:58 Dose: 100 mls/hr Magnesium Hydroxide (Milk Of Magnesia) 30 ml PO Q12H PRN PRN Reason: Constipation Melatonin (Melatonin) 9 mg PO BEDTIME PRN PRN Reason: Sleep Last Admin: 07/10/19 23:29 Dose: 9 mg Nicotine (Habitrol) 14 mg TRDERM DAILY PRN PRN Reason: nicotine craving Last Admin: 07/10/19 20:09 Dose: 14 mg Atorvastatin 40mg * (Pom*) 1 each PO DAILY [facility] Last Admin: 07/12/19 08:58 Dose: 1 each Glipizide Er 10mg * (Pom*) 1 each PO DAILY@0800 [facility] Last Admin: 07/12/19 08:57 Dose: 1 each Metformin 1000mg * (Pom*) 1 each PO BIDMEALS [facility] Last Admin: 07/12/19 08:57 Dose: 1 each Ondansetron HCl (Zofran Odt) 4 mg PO Q6H PRN PRN Reason: Nausea able to take PO Ondansetron HCl (Zofran) 4 mg IV Q6H PRN PRN Reason: Nausea/Vomiting Oxycodone HCl (Oxycodone) 5 mg PO Q4H PRN PRN Reason: Pain (moderate 4-6) Senna/Docusate Sodium (Senna Plus) 1 tab PO BID PRN PRN Reason: Constipation Last Admin: 07/12/19 08:58 Dose: 1 tab Discontinued Medications Furosemide (Lasix) 20 mg IVPUSH NOW ONE Stop: 07/12/19 10:51 Last Admin: 07/12/19 10:59 Dose: 20 mg Glipizide (Glucotrol Xl) 10 mg PO DAILY@0800 [facility] Metformin HCl (Glucophage) 1,000 mg PO BIDMEALS ANNIE - Exam Quality Assessment: Supplemental Oxygen General: Alert, Oriented, Cooperative, No Acute Distress Lungs: Clear to Auscultation, Normal Respiratory Effort Cardiovascular: Regular Rate, Regular Rhythm, Murmurs GI/Abdominal Exam: Soft, No Distention Extremities: Pedal Edema. No: Increased Warmth Psy/Mental Status: Alert, Normal Affect - Problem List & Annotations (1) Foot ulcer due to secondary DM SNOMED Code(s): 7329633 Code(s): E13.621 - OTHER SPECIFIED DIABETES MELLITUS WITH FOOT ULCER; L97.509 - NON-PRESSURE CHRONIC ULCER OTH PRT UNSP FOOT W UNSP SEVERITY Status : Acute Current Visit: Yes (2) Weight loss, unintentional SNOMED Code(s): 720129184 Code(s): R63.4 - ABNORMAL WEIGHT LOSS Status: Acute Current Visit: Yes (3) Diabetes mellitus type II, controlled SNOMED Code(s): 16445076, 074529002 Code(s): E11.9 - TYPE 2 DIABETES MELLITUS WITHOUT COMPLICATIONS Status: Chronic Current Visit: Yes Qualifiers: 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 Diabetes mellitus complication status: with unspecified complications Qualified Code(s) : E11.8 - Type 2 diabetes mellitus with unspecified complications (4) Tobacco dependence syndrome SNOMED Code(s): 99593195 Code(s): F17.200 - NICOTINE DEPENDENCE, UNSPECIFIED, UNCOMPLICATED Status: Chronic Current Visit: Yes (5) Acute combined systolic and diastolic CHF, NYHA class 3 SNOMED Code(s): 750097169580792, 311209024, 980909464869200 Code(s): I50.41 - ACUTE COMBINED SYSTOLIC AND DIASTOLIC (CONGESTIVE) HRT FAIL Status: Acute Current Visit: Yes (6) Severe aortic stenosis SNOMED Code(s): 64472916 Code(s): I35.0 - NONRHEUMATIC AORTIC (VALVE) STENOSIS Status: Acute Current Visit: Yes - Problem List Review Problem List Initiated/Reviewed/Updated: Yes - My Orders Last 24 Hours: My Active Orders 07/12/19 07:00 Echo Comp wo Cont [US] Routine 07/12/19 14:15 Admission Status [Patient Status] [ADT] Routine 07/12/19 16:00 Furosemide [Lasix] 20 mg IVPUSH ONETIME ONE 07/12/19 21:00 cephALEXin [Keflex] 500 mg PO TID 07/13/19 09:00 Furosemide [Lasix] 20 mg IVPUSH DAILY - Plan Plan:: ASSESSMENT AND PLAN - Acute combined systolic and diastolic congestive heart failure - she is hypoxic. IVC dilated on echocardiogram. Complicated by severe valvular disease. Blood pressures are on the low side of normal. Heart rate acceptable at this time. 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 Valve area less than 0.5 cm. Case was discussed with cardiothoracic surgery in [place]. -Outpatient cardiology evaluation for structural heart disease Bilateral lower extremity dermatitis with ulceration - concern for progression to critical limb ischemia. Moderate proximal obstruction and significant distal/ runoff disease. Discussed with interventional radiology in [place] and they did recommend follow-up for intervention in the near future (next week). Pro- calcitonin normal but will provide prophylactic antibiotics with poor blood flow. Sedimentation rate normal so vasculitis unlikely. CRP moderately elevated. -Empiric cefazolin while hospitalized and cephalexin after discharge -SADIE and ANCA pending -Outpatient follow-up with interventional radiology next week ([phone] - ir appt at time of d/c) -Physical therapy Weight loss, somewhat unintentional - patient reports she has been trying to lose weight but has lost more than 50 pounds in just a few months.Thyroid testing is normal. Type 2 diabetes mellitus - patient denies symptoms but I suspect there may be a component of neuropathy with no significant pain in her lower extremities. Hemoglobin A1c is 7.4. -Continue home medications Tobacco dependence - patient had a period of cessation but has started again because of stressors. -Encourage cessation -Nicotine patch Maintenance issues - - DVT prophylaxis - enoxaparin - GI prophylaxis - not indicated - Nutrition - diabetic diet Admission justification - This patient will be admitted for inpatient services and is medically appropriate meeting medical necessity for inpatient admission as outlined in my documentation. I reasonably expect the patient will require inpatient services that span a period time over 2 midnights. I reasonably expect this patient to be discharged or transferred within 96 hours after admission to the [facility]. Disposition - I would anticipate discharge home after the hospital stay, patient needs diuresis and further heart failure management Primary care physician - no local primary care as of yet Jarek Mobley M.D.
[2019-07-12] MEDS: Furosemide 20 MG/2 ML VIAL IVPUSH ONE (16:45)
[2019-07-12] MEDS: Cephalexin 250 MG Cap PO SCH (21:06)
[2019-07-12] MEDS: Nicotine 14 MG/24 Hr Patch TRDERM PRN (21:09)
[2019-07-12] MEDS: Melatonin 3 MG Tab PO PRN (21:09)
[2019-07-13] MEDS: Furosemide 20 MG/2 ML VIAL IVPUSH ONE (06:41)
[2019-07-13] MEDS: GLIPIZIDE 10 MG PO SCH (07:52)
[2019-07-13] MEDS: Furosemide 20 MG/2 ML VIAL IVPUSH SCH (08:51)
[2019-07-13] MEDS: Cephalexin 250 MG Cap PO SCH ×3 (09:04→20:13)
[2019-07-13] MEDS: Enoxaparin 40 MG/0.4 ML Syringe SUBCUT SCH (10:21)
--- NOTE | 2019-07-13 11:55 | PCM.PN ---
- General Info Date of Service: 07/13/19 Subjective Update: There were no acute events overnight. Patient had a decent response to diuresis. She did require oxygen overnight but is satting in the low 90s as of this morning without supplemental oxygen. She feels a little less short of breath this morning. No significant difficulties with leg pain at this time. Blood pressure remains on the low side of normal with systolic pressures in the 90s. She has not had any fevers. Still very weak but little better today. Functional Status: Reports: Pain Controlled, Tolerating Diet - Review of Systems General: Reports: Weakness Pulmonary: Reports: Shortness of Breath Musculoskeletal: Denies: Leg Pain - Patient Data Vitals - Most Recent: Last Vital Signs Temp 36.6 C 07/13/19 07:25 Pulse 88 07/13/19 07:25 Resp 16 07/13/19 07:25 BP 93/65 07/13/19 07:25 Pulse Ox 93 L 07/13/19 09:56 Weight - Most Recent: 63.004 kg I&O - Last 24 Hours: Intake & Output 07/12/19 07/13/19 07/13/19 22:59 06:59 14:59 Intake Total 1020 Output Total 75 50 Balance 945 -50 Med Orders - Current: Current Medications Acetaminophen (Tylenol) 650 mg PO Q4H PRN PRN Reason: Pain (Mild 1-3)/fever Last Admin: 07/12/19 22:20 Dose: 650 mg Albuterol (Proventil Neb Soln) 2.5 mg NEB Q4H PRN PRN Reason: Shortness Of Breath/wheezing Cephalexin (Keflex) 500 mg PO TID [facility] Last Admin: 07/13/19 09:04 Dose: 500 mg Dimethicone/Zinc Oxide (Rash Relief-Zinc Oxide [place]) 0 gm TOP Q2H PRN PRN Reason: groin rash Last Admin: 07/10/19 20:10 Dose: 1 applic Enoxaparin Sodium (Lovenox) 40 mg SUBCUT DAILY [facility] Last Admin: 07/13/19 10:21 Dose: 40 mg Furosemide (Lasix) 20 mg IVPUSH DAILY [facility] Last Admin: 07/13/19 08:51 Dose: 20 mg Magnesium Hydroxide (Milk Of Magnesia) 30 ml PO Q12H PRN PRN Reason: Constipation Melatonin (Melatonin) 9 mg PO BEDTIME PRN PRN Reason: Sleep Last Admin: 07/12/19 21:09 Dose: 9 mg Nicotine (Habitrol) 14 mg TRDERM DAILY PRN PRN Reason: nicotine craving Last Admin: 07/12/19 21:09 Dose: 14 mg Atorvastatin 40mg * (Pom*) 1 each PO DAILY [facility] Last Admin: 07/13/19 09:05 Dose: 1 each Glipizide Er 10mg * (Pom*) 1 each PO DAILY@0800 [facility] Last Admin: 07/13/19 07:52 Dose: 1 each Metformin 1000mg * (Pom*) 1 each PO BIDMEALS [facility] Last Admin: 07/13/19 07:52 Dose: 1 each Ondansetron HCl (Zofran Odt) 4 mg PO Q6H PRN PRN Reason: Nausea able to take PO Ondansetron HCl (Zofran) 4 mg IV Q6H PRN PRN Reason: Nausea/Vomiting Oxycodone HCl (Oxycodone) 5 mg PO Q4H PRN PRN Reason: Pain (moderate 4-6) Senna/Docusate Sodium (Senna Plus) 1 tab PO BID PRN PRN Reason: Constipation Last Admin: 07/12/19 08:58 Dose: 1 tab Discontinued Medications Furosemide (Lasix) 20 mg IVPUSH NOW ONE Stop: 07/12/19 10:51 Last Admin: 07/12/19 10:59 Dose: 20 mg Furosemide (Lasix) 20 mg IVPUSH ONETIME ONE Stop: 07/12/19 16:01 Last Admin: 07/13/19 06:41 Dose: Not Given Glipizide (Glucotrol Xl) 10 mg PO DAILY@0800 [facility] Cefazolin Sodium/Dextrose 1 gm (/ Premix) 50 mls @ 100 mls/hr IV Q8H [facility] Stop: 07/12/19 16:00 Last Admin: 07/12/19 08:58 Dose: 100 mls/hr Metformin HCl (Glucophage) 1,000 mg PO BIDMEALS [facility] - Exam Quality Assessment: No: Supplemental Oxygen General: Alert, Oriented, Cooperative, No Acute Distress Lungs: Clear to Auscultation, Normal Respiratory Effort, Decreased Breath Sounds (Mild both bases) Cardiovascular: Regular Rate, Regular Rhythm, Murmurs GI/Abdominal Exam: Soft, No Distention Extremities: Other (Both lower legs wrapped with Kerlix from the mid cramer distally including the feet). No: Pedal Edema Skin: Warm, Dry Psy/Mental Status: Alert, Normal Affect - Problem List & Annotations (1) Acute combined systolic and diastolic CHF, NYHA class 3 SNOMED Code(s): 151073603746977, 778627279, 680986868278583 Code(s): I50.41 - ACUTE COMBINED SYSTOLIC AND DIASTOLIC (CONGESTIVE) HRT FAIL Status: Acute Current Visit: Yes (2) Severe aortic stenosis SNOMED Code(s): 58902057 Code(s): I35.0 - NONRHEUMATIC AORTIC (VALVE) STENOSIS Status: Acute Current Visit: Yes (3) Peripheral vascular disease of lower extremity with ulceration SNOMED Code(s): 912554445 Code(s): I73.9 - PERIPHERAL VASCULAR DISEASE, UNSPECIFIED; L97.909 - NON-PRS CHRONIC ULC UNSP PRT OF UNSP LOW LEG W UNSP SEVERITY Status: Acute Current Visit: Yes (4) Foot ulcer due to secondary DM SNOMED Code(s): 0560528 Code(s): E13.621 - OTHER SPECIFIED DIABETES MELLITUS WITH FOOT ULCER; L97.509 - NON-PRESSURE CHRONIC ULCER OTH PRT UNSP FOOT W UNSP SEVERITY Status : Ruled-out Current Visit: Yes (5) Weight loss, unintentional SNOMED Code(s): 260099610 Code(s): R63.4 - ABNORMAL WEIGHT LOSS Status: Acute Current Visit: Yes (6) Diabetes mellitus type II, controlled SNOMED Code(s): 11206188, 241614829 Code(s): E11.9 - TYPE 2 DIABETES MELLITUS WITHOUT COMPLICATIONS Status: Chronic Current Visit: Yes Qualifiers: Diabetes mellitus accounting/finance tutor insulin use: without accounting/finance tutor use Diabetes mellitus complication status: with unspecified complications Qualified Code(s) : E11.8 - Type 2 diabetes mellitus with unspecified complications (7) Tobacco dependence syndrome SNOMED Code(s): 39042473 Code(s): F17.200 - NICOTINE DEPENDENCE, UNSPECIFIED, UNCOMPLICATED Status: Chronic Current Visit: Yes - Problem List Review Problem List Initiated/Reviewed/Updated: Yes - My Orders Last 24 Hours: My Active Orders 07/12/19 14:15 Admission Status [Patient Status] [ADT] Routine 07/12/19 21:00 cephALEXin [Keflex] 500 mg PO TID 07/13/19 09:00 Furosemide [Lasix] 20 mg IVPUSH DAILY 07/14/19 05:00 BASIC METABOLIC PANEL,BMP [CHEM] Timed CBC W/O DIFF,HEMOGRAM [HEME] Timed (1) - Plan Plan:: ASSESSMENT AND PLAN - Acute combined systolic and diastolic congestive heart failure - slowly improving with diuresis. Vital signs are stable but blood pressures are on the low side of normal. Heart rate acceptable at this time. 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 Valve area less than 0.5 cm. Case was discussed with cardiothoracic surgery in [place]. -Outpatient cardiology evaluation for structural heart disease Bilateral peripheral vascular disease with bilateral foot ulceration - concern for progression to critical limb ischemia. Moderate proximal obstruction and significant distal/runoff disease. Discussed with interventional radiology in [place] and they did recommend follow-up for intervention in the near future ( next week). Pro-calcitonin normal but will provide prophylactic antibiotics with poor blood flow. Feet are slightly warmer today. -Empiric cefazolin while hospitalized and cephalexin after discharge -SADIE and ANCA pending -Outpatient follow-up with interventional radiology next week ([phone] - ir appt at time of d/c) -Physical therapy Weight loss, somewhat unintentional - patient reports she has been trying to lose weight but has lost more than 50 pounds in just a few months.Thyroid testing is normal. Type 2 diabetes mellitus - patient denies symptoms but I suspect there may be a component of neuropathy with no significant pain in her lower extremities. Hemoglobin A1c is 7.4. -Continue home medications Tobacco dependence - patient had a period of cessation but has started again because of stressors. -Encourage cessation -Nicotine patch Maintenance issues - - DVT prophylaxis - enoxaparin - GI prophylaxis - not indicated - Nutrition - diabetic diet Admission justification - This patient will be admitted for inpatient services and is medically appropriate meeting medical necessity for inpatient admission as outlined in my documentation. I reasonably expect the patient will require inpatient services that span a period time over 2 midnights. I reasonably expect this patient to be discharged or transferred within 96 hours after admission to the [facility]. Disposition - I would anticipate discharge home after the hospital stay, hopefully tomorrow if stable overnight Primary care physician - Dr. Kranthi Mobley M.D.
[2019-07-13] MEDS ORDERED: metFORMIN 500 MG Tab ONE (17:43)
[2019-07-13] MEDS ORDERED: Calcium Carbonate 500 MG Tab.Chew PO PRN (19:19)
[2019-07-13] MEDS: Melatonin 3 MG Tab PO PRN (21:07)
--- NOTE | 2019-07-14 09:52 | PCM.DCSUM1 ---
Discharge Summary - Hospital Course Brief History: 74-year-old male with [id number] diabetes mellitus, tobacco dependence who presented with lower extremity ulceration and drainage. She was admitted for management of peripheral vascular disease with ulceration and further workup of dyspnea on exertion. Diagnosis: Stroke: No - Discharge Data Discharge Date: 07/14/19 Discharge Disposition: Home, W Home Health Agency 06 Condition: Fair - Referral to Home Health Date of Face to Face Encounter: 07/14/19 Reason for Homebound Status: Acute on chronic weakness, dyspnea with systolic congestive heart failure and peripheral vascular disease Primary Care Physician: PCP None Skilled Need: Nursing, physical therapy and occupational therapy - Discharge Diagnosis/Problem(s) (1) Acute combined systolic and diastolic CHF, NYHA class 3 SNOMED Code(s): 015523501520856, 589294815, 770379980642954 ICD Code: I50.41 - ACUTE COMBINED SYSTOLIC AND DIASTOLIC (CONGESTIVE) HRT FAIL Status: Acute Current Visit: Yes (2) Severe aortic stenosis SNOMED Code(s): 23031311 ICD Code: I35.0 - NONRHEUMATIC AORTIC (VALVE) STENOSIS Status: Acute Current Visit: Yes (3) Peripheral vascular disease of lower extremity with ulceration SNOMED Code(s): 112878202 ICD Code: I73.9 - PERIPHERAL VASCULAR DISEASE, UNSPECIFIED; L97.909 - NON- PRS CHRONIC ULC UNSP PRT OF UNSP LOW LEG W UNSP SEVERITY Status: Acute Current Visit: Yes (4) Foot ulcer due to secondary DM SNOMED Code(s): 2109533 ICD Code: E13.621 - OTHER SPECIFIED DIABETES MELLITUS WITH FOOT ULCER; L97.509 - NON-PRESSURE CHRONIC ULCER OTH PRT UNSP FOOT W UNSP SEVERITY Status : Ruled-out Current Visit: Yes (5) Weight loss, unintentional SNOMED Code(s): 918756814 ICD Code: R63.4 - ABNORMAL WEIGHT LOSS Status: Acute Current Visit: Yes (6) Diabetes mellitus type II, controlled SNOMED Code(s): 44329259, 057907549 ICD Code: E11.9 - TYPE 2 DIABETES MELLITUS WITHOUT COMPLICATIONS Status: Chronic Current Visit: Yes Qualifiers: Diabetes mellitus chcf insulin use: without buttermaker use Diabetes mellitus complication status: with unspecified complications Qualified Code(s) : E11.8 - Type 2 diabetes mellitus with unspecified complications (7) Tobacco dependence syndrome SNOMED Code(s): 75603929 ICD Code: F17.200 - NICOTINE DEPENDENCE, UNSPECIFIED, UNCOMPLICATED Status : Chronic Current Visit: Yes - Patient Summary/Data Consults: Consultations 07/10/19 18:37 Consult to Physician [CONS] Routine Consulting Provider: Hakeem Moon Call Completed to Consulting Physician: Yes Reason for Consult: bilateral foot ulcers, needs wound care Person Notified: RW Date Notified: 07/10/19 Special Instructions: will see Wed am 07/11/19 10:02 PT Evaluation and Treatment [CONS] Routine Please Evaluate and Treat. PT Reason for Consult: Strengthening This query below is only for informational purposes and is not editable. Admission Diagnosis/Problem: Foot ulcer Hospital Course: Анна presented to the emergency room with bilateral lower extremity redness and multiple open wounds. She described them as starting proximally one month prior and have been getting a little worse and definitely not getting any better. There was concern for peripheral vascular disease and an arterial ultrasound did show moderate proximal stenosis and more significant distal runoff disease. She also reported dyspnea on exertion and small pleural effusions were noted on the chest x-ray. She was admitted to the hospital under observation status for wound consultation and expedited workup of her dyspnea and concern for congestive heart failure. The morning after admission she was seen by Dr. Moon with the wound care team. He felt that she would need interventional radiology evaluation and likely intervention in the near future but not urgently. We Did Pl., Telfa pads and a light Kerlix wrapping to manage the drainage but did not place any compression on the lower extremities. The patient did develop hypoxia the second night after admission. The second morning after admission we completed an echocardiogram which showed multiple significant abnormalities including severe aortic stenosis with a valve area of about 0.5 cm, moderate aortic insufficiency, moderately severe tricuspid and mitral insufficiency, reduced ejection fraction at 40-45%, rate 3 diastolic dysfunction and possible inferior lateral wall motion abnormalities. She did receive a couple of doses of furosemide with improvement in her volume status, resolution of her JVD and resolution of the hypoxic respiratory failure. Her systolic blood pressure has been around 90 and her heart rate has been in the 80s so I did not initiate any medications at this time such as a beta jaelyn or ADELE inhibitor. We do have her on a low dose of furosemide to help balance intake and output. I did discuss the peripheral vascular disease with interventional radiology at [facility]. Follow-up is scheduled for Tuesday , 2 days from now. I also discussed her severe aortic stenosis with the cardiothoracic surgeon at [facility] in [place]. The plan is for her to follow-up with the structural heart disease portion of the cardiology clinic in the near future to start the workup and CFL for placement as indicated. The lower extremity arterial ultrasound images and the echocardiogram images have been pushed to the PACS system at [facility]. Diabetes is fairly well-controlled with 2 oral medications. A1c was 7.4. I strongly encouraged her to quit smoking. She will be going home with home care and family support and has early follow-up in 2 days time. - Patient Instructions Diet: Low Sodium Activity: As Tolerated Showering/Bathing: May Shower Notify Provider of: Fever, Increased Pain Other/Special Instructions: 1. You were in the hospital for evaluation of lower extremity wounds and swelling. We performed an arterial ultrasound that showed poor blood flow to the lower extremities, especially around the foot. I recommend that you wrap the legs gently by placing nonadherent Telfa pads over open/weeping areas and securing these with a light Kerlix wrapping. Please do not put any compression or tight dressings on your legs. You have a follow-up scheduled with Interventional Radiology at [facility] scheduled for Tuesday morning. They will perform additional testing and then you will consult with the physician. 2. During the hospital stay we performed an echocardiogram that showed multiple abnormalities with your heart including severe aortic stenosis, aortic insufficiency, mitral and tricuspid valve regurgitation as well as a reduced ejection fraction at 40-45%. I recommend that you take furosemide Lasix 20 mg daily to help balance her intake and output. We did not start new medications because her blood pressures are on the low side. The cardiology office at [facility] will be contacting you for a consultation appointment next week. 3. I strongly encourage you to quit smoking completely. If you need additional information or tips you can check out [email or web address]. 4. I have placed a referral to home health services. They will provide nursing, physical therapy and occupational therapy to help ease your transition home. 5. Follow up with Dr Dubois as scheduled next week - Discharge Plan *PRESCRIPTION DRUG MONITORING PROGRAM REVIEWED*: Not Applicable *COPY OF PRESCRIPTION DRUG MONITORING REPORT IN PATIENT [place]IA: Not Applicable Prescriptions/Med Rec: cephALEXin [Keflex] 500 mg PO TID #21 cap Furosemide 20 mg PO DAILY #30 tablet glipiZIDE [Glipizide ER] 1 tab PO DAILY #30 tab.er.24 metFORMIN HCl [Metformin HCl] 1,000 mg PO BID #60 tablet Home Medications: Home Meds atorvaSTATin Calcium [Atorvastatin Calcium] 40 mg PO DAILY 07/10/19 [History] Furosemide 20 mg PO DAILY #30 tablet 07/14/19 [Rx] cephALEXin [Keflex] 500 mg PO TID #21 cap 07/14/19 [Rx] glipiZIDE [Glipizide ER] 1 tab PO DAILY #30 tab.er.24 07/14/19 [Rx] metFORMIN HCl [Metformin HCl] 1,000 mg PO BID #60 tablet 07/14/19 [Rx] Oxygen Therapy Mode: Room Air Patient Handouts: Peripheral Vascular Disease, Heart Failure Referrals: Kranthi Dubois MD [Physician] - 07/18/19 10:40 am (Please arrive 15 minutes early to retister for your appointment.) - Discharge Summary/Plan Comment DC Time >30 min.: Yes (45 - coordinating home care and follow-up with [facility]) - Patient Data Vitals - Most Recent: Last Vital Signs Temp 35.9 C 07/14/19 07:00 Pulse 88 07/14/19 07:00 Resp 16 07/14/19 07:00 BP 95/68 07/14/19 07:00 Pulse Ox 90 L 07/14/19 07:00 Weight - Most Recent: 63.004 kg I&O - Last 24 hours: Intake & Output 07/13/19 07/14/19 07/14/19 22:59 06:59 14:59 Intake Total 250 Output Total 300 100 Balance -50 -100 Lab Results - Last 24 hrs: Laboratory Results - last 24 hr 07/11/19 07/14/19 07/14/19 Range/Units 05:00 04:43 04:43 WBC 7.8 (4.5-11.0) K/uL RBC 4.34 (3.30-5.50) M/uL Hgb 10.8 L (12.0-15.0) g/dL Hct 36.4 (36.0-48.0) % MCV 84 (80-98) fL MCH 25 L (27-31) pg MCHC 30 L (32-36) % Plt Count 217 (150-400) K/uL Sodium 128 L (140-148) mmol/L Potassium 5.0 (3.6-5.2) mmol/L Chloride 94 L (100-108) mmol/L Carbon Dioxide 25 (21-32) mmol/L Anion Gap 14.0 (5.0-14.0) mmol/L BUN 44 H (7-18) mg/dL Creatinine 0.8 (0.6-1.0) mg/dL Est Cr Clr Drug Dosing 47.32 mL/min Estimated GFR (MDRD) > 60 (>60) Glucose 99 (74-106) mg/dL Calcium 8.5 (8.5-10.1) mg/dL SADIE Ref Lab Negative (.) Med Orders - Current: Current Medications Acetaminophen (Tylenol) 650 mg PO Q4H PRN PRN Reason: Pain (Mild 1-3)/fever Last Admin: 07/12/19 22:20 Dose: 650 mg Albuterol (Proventil Neb Soln) 2.5 mg NEB Q4H PRN PRN Reason: Shortness Of Breath/wheezing Calcium Carbonate/Glycine (Tums) 1,000 mg PO Q2H PRN PRN Reason: Indigestion Last Admin: 07/13/19 19:38 Dose: 1,000 mg Cephalexin (Keflex) 500 mg PO TID [facility] Last Admin: 07/13/19 20:13 Dose: 500 mg Dimethicone/Zinc Oxide (Rash Relief-Zinc Oxide [place]) 0 gm TOP Q2H PRN PRN Reason: groin rash Last Admin: 07/10/19 20:10 Dose: 1 applic Enoxaparin Sodium (Lovenox) 40 mg SUBCUT DAILY [facility] Last Admin: 07/13/19 10:21 Dose: 40 mg Furosemide (Lasix) 20 mg IVPUSH DAILY [facility] Last Admin: 07/13/19 08:51 Dose: 20 mg Magnesium Hydroxide (Milk Of Magnesia) 30 ml PO Q12H PRN PRN Reason: Constipation Melatonin (Melatonin) 9 mg PO BEDTIME PRN PRN Reason: Sleep Last Admin: 07/13/19 21:07 Dose: 9 mg Nicotine (Habitrol) 14 mg TRDERM DAILY PRN PRN Reason: nicotine craving Last Admin: 07/12/19 21:09 Dose: 14 mg Atorvastatin 40mg * (Pom*) 1 each PO DAILY [facility] Last Admin: 07/13/19 09:05 Dose: 1 each Glipizide Er 10mg * (Pom*) 1 each PO DAILY@0800 [facility] Last Admin: 07/13/19 07:52 Dose: 1 each Metformin 1000mg * (Pom*) 1 each PO BIDMEALS [facility] Last Admin: 07/13/19 17:44 Dose: 1 each Ondansetron HCl (Zofran Odt) 4 mg PO Q6H PRN PRN Reason: Nausea able to take PO Ondansetron HCl (Zofran) 4 mg IV Q6H PRN PRN Reason: Nausea/Vomiting Oxycodone HCl (Oxycodone) 5 mg PO Q4H PRN PRN Reason: Pain (moderate 4-6) Senna/Docusate Sodium (Senna Plus) 1 tab PO BID PRN PRN Reason: Constipation Last Admin: 07/12/19 08:58 Dose: 1 tab Discontinued Medications Furosemide (Lasix) 20 mg IVPUSH NOW ONE Stop: 07/12/19 10:51 Last Admin: 07/12/19 10:59 Dose: 20 mg Furosemide (Lasix) 20 mg IVPUSH ONETIME ONE Stop: 07/12/19 16:01 Last Admin: 07/13/19 06:41 Dose: Not Given Glipizide (Glucotrol Xl) 10 mg PO DAILY@0800 [facility] Cefazolin Sodium/Dextrose 1 gm (/ Premix) 50 mls @ 100 mls/hr IV Q8H [facility] Stop: 07/12/19 16:00 Last Admin: 07/12/19 08:58 Dose: 100 mls/hr Metformin HCl (Glucophage) 1,000 mg PO BIDMEALS [facility] Metformin HCl (Glucophage) Confirm Administered Dose 1,000 mg .ROUTE .STK-MED ONE Stop: 07/13/19 17:44 Last Admin: 07/13/19 17:52 Dose: Not Given - Exam Quality Assessment: Denies: Supplemental Oxygen General: Reports: Alert, Oriented, Cooperative, No Acute Distress Lungs: Reports: Normal Respiratory Effort Cardiovascular: Reports: Regular Rate, Regular Rhythm GI/Abdominal Exam: No Distention Extremities: No Pedal Edema, Other (Both lower legs wrapped from mid cramer distally including the feet) Psy/Mental Status: Reports: Alert, Normal Affect *Q Meaningful Use (DIS) - VTE *Q VTE Mechanical Contraindications *Q: Bilateral Lower Dermatits
[2019-07-14] MEDS: Enoxaparin 40 MG/0.4 ML Syringe SUBCUT SCH (10:03)
[2019-07-14] MEDS: Cephalexin 250 MG Cap PO SCH (10:03)
[2019-07-14] MEDS: Furosemide 20 MG/2 ML VIAL IVPUSH SCH (10:04)
[2019-07-14] MEDS: GLIPIZIDE 10 MG PO SCH (10:56)
== END 2019-07-14 11:45 | disposition home health service (06) | DRG 299 ==
LOC: JP.ED 14:22 → JP.MS 17:39 → OBSVTOIN 07-12 14:15
PROVIDERS: ADMIT Internal Medicine; ATTEND Internal Medicine
DX: E11.51 Type 2 diabetes mellitus with diabetic peripheral angiopathy without gangrene (principal); I50.41 Acute combined systolic (congestive) and diastolic (congestive) heart failure; J96.91 Respiratory failure, unspecified with hypoxia; R53.81 Other malaise; R53.1 Weakness; E11.621 Type 2 diabetes mellitus with foot ulcer; L97.529 Non-pressure chronic ulcer of other part of left foot with unspecified severity; H54.7 Unspecified visual loss; L97.519 Non-pressure chronic ulcer of other part of right foot with unspecified severity; I10 Essential (primary) hypertension; R63.4 Abnormal weight loss; Z87.891 Personal history of nicotine dependence; R06.02 Shortness of breath; L53.9 Erythematous condition, unspecified; R60.9 Edema, unspecified; Z66 Do not resuscitate; L30.9 Dermatitis, unspecified; I35.0 Nonrheumatic aortic (valve) stenosis; I11.0 Hypertensive heart disease with heart failure; F17.200 Nicotine dependence, unspecified, uncomplicated; I87.8 Other specified disorders of veins; E78.00 Pure hypercholesterolemia, unspecified; F41.9 Anxiety disorder, unspecified; Z71.6 Tobacco abuse counseling; Z88.8 Allergy status to other drugs, medicaments and biological substances; Z79.84 Long term (current) use of oral hypoglycemic drugs; Z79.899 Other long term (current) drug therapy; Z90.89 Acquired absence of other organs; Z68.25 Body mass index [BMI] 25.0-25.9, adult
CPT/HCPCS: 36415 ×3; 71045; 80048 ×2; 80053; 81001; 83036; 84145; 84443; 85025; 85027 ×2; 85651; 86038; 86140; 93306; 93925; 96365; 96372 ×2; 96375; 96376 ×2; 97110; 97162; 97530; 97535 ×3; 99284; 99285; A9270 ×14; G0378 ×2; J0690 ×4; J1650 ×2; J1940

== ENCOUNTER 2019-07-24 12:12 | Observation (INO) | payer MEDICARE ==
[2019-07-24] MEDS ORDERED: Sodium Chloride 0.9% 1,000 ML IV SCH ×3 (12:30→14:00)
[2019-07-24] MEDS ORDERED: Sodium Chloride 0.9% 10 ML Syringe FLUSH ONE (14:02)
[2019-07-24] MEDS ORDERED: Iopamidol 612 MG/ML 100 ML Bottle IV SCH (14:15)
[2019-07-24] MEDS ORDERED: Sodium Chloride 0.9% 75 ML IV SCH (14:15)
--- NOTE | 2019-07-24 14:20 | CRLCR ---
INDICATION: Shortness of breath. TECHNIQUE: Chest 1 view COMPARISON: Chest radiograph 07/10/2019. FINDINGS: Decreased, now tiny bilateral pleural effusions. Bibasilar atelectasis has improved. No pneumothorax. Cardiomegaly with increased pulmonary vascularity. Calcified tortuous aorta. IMPRESSION: 1. Decreased, now tiny bilateral pleural effusions. 2. Bibasilar atelectasis has improved. 3. Stable cardiomegaly. Dictated by Imani Verduzco MD @ Jul 24 2019 2:16PM Signed by Dr. Imani Verduzco @ Jul 24 2019 2:18PM
--- NOTE | 2019-07-24 15:05 | CRLCT ---
INDICATION: Infiltrate in right lung. COMPARISON: Chest radiograph 07/24/2019. TECHNIQUE: CT volumetric acquisition was performed of the thorax during intravenous infusion of 100 cc of Isovue-300 nonionic intravenous contrast. Coronal and sagittal reconstructions. FINDINGS: Cardiomegaly. Conventional 3 vessel aortic arch. Dilation of the ascending thoracic aorta, measuring 4.4 cm in AP dimension. Mildly prominent central pulmonary arteries. No acute pulmonary embolism. Mild coronary artery calcifications. Aortic arch calcifications. Calcifications of the aortic valve and mitral annulus. No pericardial effusion. No thoracic lymphadenopathy. Small bilateral pleural effusions. Associated bibasilar atelectasis. Patchy ground-glass opacities in both lower lobes may represent atelectasis, edema, or atypical infectious process. Bronchial wall thickening in both lower lobes, greater on the right. No pneumothorax. No pulmonary nodules are identified. Mildly enlarged thyroid gland with bilateral low-attenuation nodules measuring up to 1.9 cm in the left thyroid lobe. Coarse calcification in the left thyroid lobe. Mildly distended gallbladder. No stones are seen. The visualized upper abdomen is otherwise unremarkable. Degenerative changes of the spine. Old right rib fracture. IMPRESSION: 1. Small bilateral pleural effusions with associated bibasilar atelectasis. 2. Patchy ground-glass opacities in both lower lobes may represent atelectasis, edema, or atypical infectious process. 3. Bronchial wall thickening in both lower lobes. 4. Cardiomegaly. 5. Dilation of the ascending thoracic aorta to 4.4 cm. 6. Multinodular thyroid gland. Recommend further evaluation with thyroid ultrasound. Please note that all CT scans at this facility use dose modulation, iterative reconstruction, and/or weight-based dosing when appropriate to reduce radiation dose to as low as reasonably achievable. Dictated by Imani Verduzco MD @ Jul 24 2019 2:48PM Signed by Dr. Imani Verduzco @ Jul 24 2019 3:03PM
--- NOTE | 2019-07-24 15:29 | PCM.HP.2 ---
H&P History of Present Illness - General Date of Service: 07/24/19 Admit Problem/Dx: Admission Diagnosis/Problem Admission Diagnosis/Problem Hypoglycemia Source of Information: Patient, Family, Provider History Limitations: Reports: No Limitations - History of Present Illness Initial Comments - Free Text/Narative: CC: Jarrod slid down to the floor HPI: Анна presents to the emergency room today after being found unresponsive at home. She remembers sliding from her recliner onto the floor but is not sure how long she was down on the floor. She does not recall any preceding symptoms. She does not report any recent shortness of breath, fever, palpitations. She feels fine now. She has not been eating very well. She doesn't think that her legs are any worse than they have been in does not have significant pain at this time. She did not make it to her interventional radiology appointments one week ago for vascular intervention. She does not check her blood sugars at home. She is feeling much better and bacteremia usual self without any impressive intervention. She did receive some IV fluids in the emergency room for low blood pressure. Workup in the emergency room did reveal leukocytosis as well as mild hyponatremia and mild hyperkalemia. Kidney function is normal. Chest x-ray showed some small I lateral effusions and possible infiltrate versus atelectasis and CT scan of the chest showed the same. The CT scan did also visualize thyroid nodules and an ultrasound was recommended. The patient will be admitted for observation with careful blood sugar monitoring and expedited workup of the thyroid nodules. - Related Data Allergies/Adverse Reactions: Allergies Allergy/AdvReac Type Severity Reaction Status Date / Time niacin Allergy Respiratory Verified 07/24/19 12:21 Distress Home Medications: Home Meds metFORMIN HCl [Metformin HCl] 1,000 mg PO BID #60 tablet 07/14/19 [Rx] glipiZIDE [Glipizide ER] 5 mg PO DAILY 07/24/19 [History] Past Medical History HEENT History: Reports: Impaired Vision Cardiovascular History: Reports: High Cholesterol, Hypertension Respiratory History: Reports: Other (See Below) Other Respiratory History: wet cough since april Gastrointestinal History: Reports: Other (See Below) Other Gastrointestinal History: colo guard negative [employer] History: Reports: Musculoskeletal History: Reports: Fracture Other Musculoskeletal History: R foot fx, L shoulder fx, R hand fx Psychiatric History: Reports: Anxiety Endocrine/Metabolic History: Reports: Diabetes, Type II Dermatologic History: Reports: Other (See Below) Other Dermatologic History: weeping sores on lets - Infectious Disease History Infectious Disease History: Reports: Chicken Pox, Measles Other Infectious Disease History: pt states she is unsure about hepatitis infection? - Past Surgical History Head Surgeries/Procedures: Reports: None HEENT Surgical History: Reports: Tonsillectomy Cardiovascular Surgical History: Reports: None Respiratory Surgical History: Reports: None GI Surgical History: Reports: None Endocrine Surgical History: Reports: None Neurological Surgical History: Reports: None Musculoskeletal Surgical History: Reports: None Dermatological Surgical History: Reports: None Social & Family History - Family History Endocrine/Metabolic: Reports: Diabetes, type II - Tobacco Use Smoking Status *Q: Current Some Day Smoker Years of Tobacco use: 50 Packs/Tins Daily: 0.5 Used Tobacco, but Quit: No - Caffeine Use Caffeine Use: Reports: Coffee, Soda, Tea - Alcohol Use Alcohol Use History: No - Recreational Drug Use Recreational Drug Use: No H&P Review of Systems - Review of Systems: Review Of Systems: See Below Free Text/Narrative: A complete 12 point review of systems was obtained. Pertinent positives and negatives are noted in the history of present illness. All other systems were reviewed and were negative except as noted. Exam - Exam Exam: See Below - Vital Signs Vital Signs: Last Vital Signs Temp 35.1 C L 07/24/19 12:14 Pulse 48 L 07/24/19 15:11 Resp 16 07/24/19 12:14 BP 85/51 L 07/24/19 15:11 Pulse Ox 96 07/24/19 12:14 Weight: 63.049 kg - Exam Quality Assessment: No: Supplemental Oxygen General: Alert, Oriented, Cooperative. No: Mild Distress HEENT: No: Mucosa Moist & [place] (dry), Scleral Icterus Neck: Supple, Trachea Midline. No: Lymphadenopathy Lungs: Normal Respiratory Effort, Decreased Breath Sounds (mild both bases ). No: Crackles, Wheezing Cardiovascular: Regular Rate, Regular Rhythm, Systolic Murmur, Diastolic Murmur GI/Abdominal Exam: Normal Bowel Sounds, Soft, Non-Tender, No Distention Back Exam: Decreased Range of Motion. No: Normal Inspection Extremities: Pedal Edema, Other (edema both legs from mid cramer proximally to above the knee ). No: Normal Capillary Refill, Increased Warmth Skin: Warm, Dry, Other (cool, ischemic appearing legs from mid-cramer distally with multiple ulcerations ) Neuro Extensive - Mental Status: Alert, Oriented x3, Nl Response to Commands Neuro Extensive - Motor, Sensory, Reflexes: No: Dysarthria, Abnormal Motor, Tremor Psychiatric: Alert, Normal Affect - Patient Data Lab Results Last 24 hrs: Laboratory Results - last 24 hr 07/24/19 07/24/19 07/24/19 Range/Units 12:39 12:39 13:31 WBC 21.2 H (4.5-11.0) K/uL RBC 4.74 (3.30-5.50) M/uL Hgb 11.7 L (12.0-15.0) g/dL Hct 39.2 (36.0-48.0) % MCV 83 (80-98) fL MCH 25 L (27-31) pg MCHC 30 L (32-36) % Plt Count 147 L (150-400) K/uL Neut % (Auto) 94 H (36-66) % Lymph % (Auto) 2 L (24-44) % [place] % (Auto) 5 (2-6) % Eos % (Auto) 0 L (2-4) % Baso % (Auto) 0 (0-1) % Sodium 127 L (140-148) mmol/L Potassium 5.8 H (3.6-5.2) mmol/L Chloride 94 L (100-108) mmol/L Carbon Dioxide 23 (21-32) mmol/L Anion Gap 15.8 H (5.0-14.0) mmol/L BUN 49 H (7-18) mg/dL Creatinine 0.8 (0.6-1.0) mg/dL Est Cr Clr Drug Dosing 47.32 mL/min Estimated GFR (MDRD) > 60 (>60) Glucose 59 L (74-106) mg/dL Calcium 8.6 (8.5-10.1) mg/dL Total Bilirubin 0.6 (0.2-1.0) mg/dL AST 26 (15-37) U/L ALT 17 (12-78) U/L Alkaline Phosphatase 102 (46-116) U/L Creatine Kinase 138 (26-192) U/L Troponin I 0.038 (0.000-0.056) ng/mL Total Protein 6.7 (6.4-8.2) g/dL Albumin 2.7 L (3.4-5.0) g/dL Globulin 4.0 H (2.3-3.5) g/dL Albumin/Globulin Ratio 0.7 L (1.2-2.2) Result Diagrams: 07/24/19 12:39 07/24/19 12:39 Imaging Impressions Last 24 hrs: CXR - images personally reviewed - heart size is normal. tiny bilateral effusions. infiltrate vs atelectasis right lower lobe. No obvious mass. *Q Meaningful Use (ADM) - VTE *Q VTE Mechanical Contraindications *Q: Bilateral Lower Ischemia - VTE Risk Assess *Q Each Risk Factor Represents 1 Point: Swollen Legs, Current, Abnormal Pulmonary Function (COPD) Total Score 1 Point Risk Factors: 2 Each Risk Factor Represents 2 Points: None Total Score 2 Point Risk Factors: 0 Each Risk Factor Represents 3 Points: Age 75 Years or Greater Total Score 3 Point Risk Factors: 3 Each Risk Factor Represents 5 Points: None Total Score 5 Point Risk Factors: 0 Venous Thromboembolism Risk Factor Score *Q: 5 - Problem List (1) Hypoglycemia due to type 2 diabetes mellitus SNOMED Code(s): 822702174076548, 060697226759750 ICD Code: E11.649 - TYPE 2 DIABETES MELLITUS WITH HYPOGLYCEMIA WITHOUT COMA Status: Acute Current Visit: Yes (2) Severe aortic stenosis SNOMED Code(s): 89060060 ICD Code: I35.0 - NONRHEUMATIC AORTIC (VALVE) STENOSIS Status: Chronic Current Visit: No (3) Peripheral vascular disease of lower extremity with ulceration SNOMED Code(s): 400362272 ICD Code: I73.9 - PERIPHERAL VASCULAR DISEASE, UNSPECIFIED; L97.909 - NON- PRS CHRONIC ULC UNSP PRT OF UNSP LOW LEG W UNSP SEVERITY Status: Chronic Current Visit: No (4) Tobacco dependence syndrome SNOMED Code(s): 61992525 ICD Code: F17.200 - NICOTINE DEPENDENCE, UNSPECIFIED, UNCOMPLICATED Status : Chronic Current Visit: No Problem List Initiated/Reviewed/Updated: Yes Orders Last 24hrs: Active Orders 24 hr Category Date Time Status Patient Status Manage Transfer [TRANSFER] Routine ADT 07/24/19 15:17 Ordered EKG Documentation Completion [RC] ASDIRECTED Care 07/24/19 12:27 Active UA W/MICROSCOPIC [URIN] Urgent Lab 07/24/19 12:27 Ordered Iopamidol [Isovue-300 (61%)] Med 07/24/19 14:15 Active 100 ml IV . DIRECTED Sodium Chloride 0.9% [Normal Saline] 1,000 ml Med 07/24/19 12:30 Active IV ASDIRECTED Sodium Chloride 0.9% [Normal Saline] 1,000 ml Med 07/24/19 13:00 Active IV ASDIRECTED Sodium Chloride 0.9% [Normal Saline] 1,000 ml Med 07/24/19 14:00 Active IV ASDIRECTED Sodium Chloride 0.9% [Normal Saline] 75 ml Med 07/24/19 14:15 Active IV ASDIRECTED Resuscitation Status Routine Resus Stat 07/24/19 15:18 Ordered EKG 12 Lead [EK] Routine Ther 07/24/19 12:27 Ordered Medication Orders Sodium Chloride (Normal Saline) 1,000 mls @ 999 mls/hr IV ASDIRECTED [facility] Last Admin: 07/24/19 12:40 Dose: 999 mls/hr Sodium Chloride (Normal Saline) 1,000 mls @ 999 mls/hr IV ASDIRECTED [facility] Last Admin: 07/24/19 14:07 Dose: 999 mls/hr Sodium Chloride (Normal Saline) 1,000 mls @ 300 mls/hr IV ASDIRECTED ANNIE Sodium Chloride (Normal Saline) 75 mls @ 0 mls/hr IV ASDIRECTED [facility] Last Admin: 07/24/19 14:30 Dose: 3 mls/hr Iopamidol (Isovue-300 (61%)) 100 ml IV . DIRECTED [facility] Last Admin: 07/24/19 14:30 Dose: 100 ml Assessment/Plan Comment:: ASSESSMENT AND PLAN - Hypoglycemia with type 2 diabetes mellitus - glipizide dosing recently decreased. Blood sugar was 59 on arrival. No other obvious cause for the patient to have her episode where she slid down on the floor. No obvious evidence for infection. Blood pressures are on the low side of normal but patient's typical systolic blood pressures in the 90s. -Hold glipizide, consider discontinuation -Continue metformin -4 times daily Accu-Cheks Thyroid nodules, left - incidental finding on the CT scan. Patient has had significant weight loss and would benefit from further evaluation. -Thyroid ultrasound. Severe aortic stenosis - seems to be compensated at this time. -Continue diuretic in the morning Peripheral vascular disease with critical limb ischemia - legs are stable at this time with no evidence for infection. She has interventional radiology follow-up in 3.5 days. Maintenance issues - - DVT prophylaxis - enoxaparin - GI prophylaxis - not indicated - Nutrition - consistent carbohydrate - Encinas catheter - not indicated CODE STATUS - DNR/DNI Admission justification - patient will be referred observation status for monitoring of blood sugars and extubated workup of thyroid nodules Disposition - I would anticipate discharge home with home care tomorrow Primary care physician - Kranthi Mobley M.D. - Mortality Measure Prognosis:: Good
[2019-07-24] MEDS ORDERED: Albuterol 0.083% 2.5 MG/3 ML Neb Soln NEB PRN (16:20)
[2019-07-24] MEDS ORDERED: Ondansetron 4 MG/2 ML SDV IV PRN (16:20)
[2019-07-24] MEDS ORDERED: Magnesium Hydroxide 400 MG/5 ML Susp 30 ML Cup PO PRN (16:20)
[2019-07-24] MEDS ORDERED: Melatonin 3 MG Tab PO PRN (16:20)
[2019-07-24] MEDS ORDERED: Ondansetron 4 MG Tab.DIS PO PRN (16:20)
[2019-07-24] MEDS ORDERED: Acetaminophen 325 MG Tab PO PRN (16:20)
[2019-07-24] MEDS ORDERED: Dimethicone 20%/Zinc Oxide 25% 56 GM Spray Bottle TOP PRN (16:53)
[2019-07-24] MEDS: metFORMIN 500 MG Tab PO SCH (17:23)
[2019-07-24] MEDS: oxyCODONE 5 MG Tab PO PRN (21:37)
[2019-07-25] MEDS: oxyCODONE 5 MG Tab PO PRN ×2 (02:27→07:27)
[2019-07-25] MEDS ORDERED: Sodium Polystyrene Sulfonate 15 GM/60 ML Susp 60 ML Bot PO ONE (05:27)
[2019-07-25] MEDS ORDERED: Furosemide 20 MG/2 ML VIAL IVPUSH ONE (06:19)
[2019-07-25] MEDS ORDERED: Aspirin 81 MG Tab.EC PO SCH (09:00)
[2019-07-25] MEDS ORDERED: Furosemide 20 MG Tab PO SCH (09:00)
[2019-07-25] MEDS ORDERED: cefTRIAXone 1 GM in Sodium Chloride 0.9% 50 ML IV SCH (09:00)
[2019-07-25] MEDS ORDERED: Enoxaparin 40 MG/0.4 ML Syringe SUBCUT SCH (09:00)
[2019-07-25] MEDS: metFORMIN 500 MG Tab PO SCH (09:33)
[2019-07-25] MEDS ORDERED: Morphine 2 MG/ML Syringe IVPUSH PRN (10:14)
--- NOTE | 2019-07-25 10:25 | PCM.PN ---
- General Info Date of Service: 07/25/19 Subjective Update: overnight the patient has become obtunded. Blood pressures were on the low side yesterday evening but did come up overnight. Patient is very lethargic and is moaning but is not able to participate in any review of systems. She has not had any fevers. White blood cell count is slightly better today. Potassium is slightly higher today. She did receive a dose of Lasix this morning without much in the way of urine output afterwards. - Review of Systems General: Reports: Weakness Neurological: Reports: Confusion - Patient Data Vitals - Most Recent: Last Vital Signs Temp 36.5 C 07/25/19 06:46 Pulse 96 07/25/19 06:46 Resp 18 07/25/19 06:46 BP 92/60 07/25/19 06:46 Pulse Ox 94 L 07/25/19 06:46 Weight - Most Recent: 63.049 kg I&O - Last 24 Hours: Intake & Output 07/24/19 07/25/19 07/25/19 22:59 06:59 14:59 Intake Total 100 50 Output Total 100 Balance 0 50 Lab Results Last 24 Hours: Laboratory Results - last 24 hr 07/24/19 07/24/19 07/24/19 Range/Units 12:39 12:39 13:31 WBC 21.2 H (4.5-11.0) K/uL RBC 4.74 (3.30-5.50) M/uL Hgb 11.7 L (12.0-15.0) g/dL Hct 39.2 (36.0-48.0) % MCV 83 (80-98) fL MCH 25 L (27-31) pg MCHC 30 L (32-36) % Plt Count 147 L (150-400) K/uL Neut % (Auto) 94 H (36-66) % Lymph % (Auto) 2 L (24-44) % [place] % (Auto) 5 (2-6) % Eos % (Auto) 0 L (2-4) % Baso % (Auto) 0 (0-1) % Sodium 127 L (140-148) mmol/L Potassium 5.8 H (3.6-5.2) mmol/L Chloride 94 L (100-108) mmol/L Carbon Dioxide 23 (21-32) mmol/L Anion Gap 15.8 H (5.0-14.0) mmol/L BUN 49 H (7-18) mg/dL Creatinine 0.8 (0.6-1.0) mg/dL Est Cr Clr Drug Dosing 47.32 mL/min Estimated GFR (MDRD) > 60 (>60) Glucose 59 L (74-106) mg/dL Calcium 8.6 (8.5-10.1) mg/dL Total Bilirubin 0.6 (0.2-1.0) mg/dL AST 26 (15-37) U/L ALT 17 (12-78) U/L Alkaline Phosphatase 102 (46-116) U/L Creatine Kinase 138 (26-192) U/L Troponin I 0.038 (0.000-0.056) ng/mL Total Protein 6.7 (6.4-8.2) g/dL Albumin 2.7 L (3.4-5.0) g/dL Globulin 4.0 H (2.3-3.5) g/dL Albumin/Globulin Ratio 0.7 L (1.2-2.2) Urine Color (YELLOW) Urine Appearance (CLEAR) Urine pH (5.0-8.0) Ur Specific [place] (1.008-1.030) Urine Protein (NEGATIVE) mg/dL Urine Glucose (UA) (NEGATIVE) mg/dL Urine Ketones (NEGATIVE) mg/dL Urine Occult Blood (NEGATIVE) Urine Nitrite (NEGATIVE) Urine Bilirubin (NEGATIVE) Urine Urobilinogen (0.2-1.0) EU/dL Ur Leukocyte Esterase (NEGATIVE) Urine RBC (0-5) Urine WBC (0-5) Ur Epithelial Cells Amorphous Sediment Urine Bacteria Urine Mucus Urine Other 07/25/19 07/25/19 07/25/19 Range/Units 04:35 04:40 04:40 WBC 15.7 H (4.5-11.0) K/uL RBC 4.18 (3.30-5.50) M/uL Hgb 10.3 L (12.0-15.0) g/dL Hct 34.9 L (36.0-48.0) % MCV 84 (80-98) fL MCH 25 L (27-31) pg MCHC 30 L (32-36) % Plt Count 136 L (150-400) K/uL Neut % (Auto) (36-66) % Lymph % (Auto) (24-44) % [place] % (Auto) (2-6) % Eos % (Auto) (2-4) % Baso % (Auto) (0-1) % Sodium 126 L (140-148) mmol/L Potassium 6.5 H* (3.6-5.2) mmol/L Chloride 95 L (100-108) mmol/L Carbon Dioxide 23 (21-32) mmol/L Anion Gap 14.5 H (5.0-14.0) mmol/L BUN 49 H (7-18) mg/dL Creatinine 0.9 (0.6-1.0) mg/dL Est Cr Clr Drug Dosing 42.06 mL/min Estimated GFR (MDRD) > 60 (>60) Glucose 96 (74-106) mg/dL Calcium 8.1 L (8.5-10.1) mg/dL Total Bilirubin (0.2-1.0) mg/dL AST (15-37) U/L ALT (12-78) U/L Alkaline Phosphatase (46-116) U/L Creatine Kinase (26-192) U/L Troponin I (0.000-0.056) ng/mL Total Protein (6.4-8.2) g/dL Albumin (3.4-5.0) g/dL Globulin (2.3-3.5) g/dL Albumin/Globulin Ratio (1.2-2.2) Urine Color Yellow (YELLOW) Urine Appearance Clear (CLEAR) Urine pH 5.0 (5.0-8.0) Ur Specific [place] 1.015 (1.008-1.030) Urine Protein 30 H (NEGATIVE) mg/dL Urine Glucose (UA) Negative (NEGATIVE) mg/dL Urine Ketones Negative (NEGATIVE) mg/dL Urine Occult Blood Negative (NEGATIVE) Urine Nitrite Negative (NEGATIVE) Urine Bilirubin Small H (NEGATIVE) Urine Urobilinogen 0.2 (0.2-1.0) EU/dL Ur Leukocyte Esterase Trace H (NEGATIVE) Urine RBC 0-5 (0-5) Urine WBC 0-5 (0-5) Ur Epithelial Cells Few Amorphous Sediment Not seen Urine Bacteria Many Urine Mucus Not seen Urine Other Med Orders - Current: Current Medications Acetaminophen (Tylenol) 650 mg PO Q4H PRN PRN Reason: Pain (Mild 1-3)/fever Last Admin: 07/24/19 23:40 Dose: 650 mg Albuterol (Proventil Neb Soln) 2.5 mg NEB Q4H PRN PRN Reason: Shortness Of Breath/wheezing Aspirin (Halfprin) 81 mg PO DAILY [facility] Last Admin: 07/25/19 10:22 Dose: Not Given Dimethicone/Zinc Oxide (Rash Relief-Zinc Oxide [employer]) 0 gm TOP Q2H PRN PRN Reason: Rash Last Admin: 07/24/19 21:38 Dose: 1 applic Enoxaparin Sodium (Lovenox) 40 mg SUBCUT DAILY [facility] Last Admin: 07/25/19 09:34 Dose: 40 mg Furosemide (Lasix) 20 mg PO DAILY [facility] Last Admin: 07/25/19 10:23 Dose: Not Given Ceftriaxone Sodium 1 gm/ (Sodium Chloride) 50 mls @ 100 mls/hr IV Q24H [facility] Last Admin: 07/25/19 09:47 Dose: 100 mls/hr Azithromycin 500 mg/ Sodium (Chloride) 250 mls @ 250 mls/hr IV Q24H [facility] Magnesium Hydroxide (Milk Of Magnesia) 30 ml PO Q12H PRN PRN Reason: Constipation Melatonin (Melatonin) 9 mg PO BEDTIME PRN PRN Reason: Sleep Last Admin: 07/24/19 23:39 Dose: 9 mg Metformin HCl (Glucophage) 1,000 mg PO BIDAC [facility] Last Admin: 07/25/19 09:33 Dose: Not Given Morphine Sulfate (Morphine) 2 mg IVPUSH Q2H PRN PRN Reason: Pain (severe 7-10) Nystatin (Nystatin Crm) 0 gm TOP TID [facility] Ondansetron HCl (Zofran Odt) 4 mg PO Q6H PRN PRN Reason: Nausea able to take PO Ondansetron HCl (Zofran) 4 mg IV Q6H PRN PRN Reason: Nausea/Vomiting Senna/Docusate Sodium (Senna Plus) 1 tab PO BID PRN PRN Reason: Constipation Discontinued Medications Furosemide (Lasix) 20 mg IVPUSH ONETIME ONE Stop: 07/25/19 06:20 Last Admin: 07/25/19 06:40 Dose: 20 mg Sodium Chloride (Normal Saline) 1,000 mls @ 999 mls/hr IV ASDIRECTED [facility] Last Admin: 07/24/19 12:40 Dose: 999 mls/hr Sodium Chloride (Normal Saline) 1,000 mls @ 999 mls/hr IV ASDIRECTED [facility] Last Admin: 07/24/19 14:07 Dose: 999 mls/hr Sodium Chloride (Normal Saline) 1,000 mls @ 300 mls/hr IV ASDIRECTED [facility] Sodium Chloride (Normal Saline) 75 mls @ 0 mls/hr IV ASDIRECTED [facility] Last Admin: 07/24/19 14:30 Dose: 3 mls/hr Influenza Virus Vaccine (Fluzone High-Dose 2019- Syringe) 180 mcg IM .ONCE ONE Stop: 07/25/19 10:01 Iopamidol (Isovue-300 (61%)) 100 ml IV . DIRECTED [facility] Last Admin: 07/24/19 14:30 Dose: 100 ml Oxycodone HCl (Oxycodone) 5 mg PO Q4H PRN PRN Reason: Pain (moderate 4-6) Last Admin: 07/25/19 07:27 Dose: 5 mg Sodium Chloride (Saline Flush) 10 ml FLUSH ONETIME ONE Stop: 07/24/19 14:03 Last Admin: 07/24/19 14:32 Dose: 10 ml Sodium Polystyrene Sulfonate (Kayexalate) 30 gm PO ONETIME ONE Stop: 07/25/19 05:28 Last Admin: 07/25/19 05:59 Dose: 15 gm - Exam Quality Assessment: No: Supplemental Oxygen General: No Acute Distress, Lethargic. No: Alert, Oriented HEENT: Pupils Equal Lungs: Normal Respiratory Effort, Crackles (diffuse). No: Wheezing Cardiovascular: Regular Rhythm, Tachycardia, Murmurs GI/Abdominal Exam: Soft, Non-Tender, No Distention Extremities: Pedal Edema. No: Increased Warmth Skin: Warm, Dry Wound/Incisions: Other (lower legs wrapped with Kerlix from mid cramer to the foot ) Psy/Mental Status: No: Alert, Agitated - Problem List & Annotations (1) Hypoglycemia due to type 2 diabetes mellitus SNOMED Code(s): 847553557296305, 456213197453240 Code(s): E11.649 - TYPE 2 DIABETES MELLITUS WITH HYPOGLYCEMIA WITHOUT COMA Status: Acute Current Visit: Yes (2) Severe aortic stenosis SNOMED Code(s): 64218595 Code(s): I35.0 - NONRHEUMATIC AORTIC (VALVE) STENOSIS Status: Chronic Current Visit: No (3) Peripheral vascular disease of lower extremity with ulceration SNOMED Code(s): 203462115 Code(s): I73.9 - PERIPHERAL VASCULAR DISEASE, UNSPECIFIED; L97.909 - NON-PRS CHRONIC ULC UNSP PRT OF UNSP LOW LEG W UNSP SEVERITY Status: Chronic Current Visit: No (4) Tobacco dependence syndrome SNOMED Code(s): 66306126 Code(s): F17.200 - NICOTINE DEPENDENCE, UNSPECIFIED, UNCOMPLICATED Status: Chronic Current Visit: No - Problem List Review Problem List Initiated/Reviewed/Updated: Yes - My Orders Last 24 Hours: My Active Orders 07/24/19 15:18 Resuscitation Status Routine 07/24/19 16:20 Patient Status [ADT] Routine Intake and Output [RC] QSHIFT Notify Provider Vital Signs [RC] ASDIRECTED Oxygen Therapy [RC] PRN RT Aerosol Therapy [RC] ASDIRECTED Up With Assistance [RC] ASDIRECTED VTE/DVT Education [RC] Per Unit Routine Vital Signs [RC] Q4H Acetaminophen [Tylenol] 650 mg PO Q4H PRN Albuterol [Proventil Neb Soln] 2.5 mg NEB Q4H PRN Docusate Sodium/Sennosides [Senna Plus] 1 tab PO BID PRN Magnesium Hydroxide [Milk of Magnesia] 30 ml PO Q12H PRN Melatonin 9 mg PO BEDTIME PRN Ondansetron [Zofran ODT] 4 mg PO Q6H PRN Ondansetron [Zofran] 4 mg IV Q6H PRN 07/24/19 16:30 metFORMIN [Glucophage] 1,000 mg PO BIDAC 07/24/19 16:53 Dimethicone/Zinc Oxide [Rash Relief-Zinc Oxide [employer]] 0 gm TOP Q2H PRN 07/24/19 16:55 Influenza Vaccine Charge [RC] .DISCHARGE 07/24/19 Dinner Consistent Carbohydrate Diet [DIET] 07/25/19 03:26 Urinary Catheter Assessment [RC] ASDIRECTED 07/25/19 03:30 Insert Encinas Catheter [Insert Urinary Catheter] [OM.PC] Q24H 07/25/19 08:39 CULTURE URINE [RM] Routine 07/25/19 09:00 Head Neck Soft Tissue Bi [US] Routine Aspirin [Halfprin] 81 mg PO DAILY Enoxaparin [Lovenox] 40 mg SUBCUT DAILY Furosemide [Lasix] 20 mg PO DAILY cefTRIAXone [Rocephin] 1 gm Sodium Chloride 0.9% [Normal Saline] 50 ml IV Q24H 07/25/19 10:12 ABG [BLOOD GAS ARTERIAL] [BG] Routine 07/25/19 10:13 Urinary Catheter Assessment [RC] ASDIRECTED POTASSIUM,K [CHEM] Routine 07/25/19 10:14 Morphine 2 mg IVPUSH Q2H PRN 07/25/19 10:15 Insert Encinas Catheter [Insert Urinary Catheter] [OM.PC] Q24H 07/25/19 11:00 Azithromycin [Zithromax] 500 mg Sodium Chloride 0.9% [Normal Saline] 250 ml IV Q24H 07/25/19 11:30 GLUCOSE POC LAB TO COLLECT [POC] QIDACANDBED 07/25/19 14:00 Nystatin [Nystatin Crm] 0 gm TOP TID 07/25/19 16:30 GLUCOSE POC LAB TO COLLECT [POC] QIDACANDBED 07/26/19 05:00 CBC W/O DIFF,HEMOGRAM [HEME] Timed (1) COMPREHENSIVE METABOLIC PN,CMP [CHEM] Timed - Plan Plan:: ASSESSMENT AND PLAN - Hypoactive delirium, acute - suspect infectious etiology. Mild metabolic acidosis but no CO2 retention on ABGs. Bronchitis is most highly suspicious for infectious source. possibly some contribution from pain medications. Troponin is mildly elevated probably related to demand ischemia. No ischemia on the EKG. -Ceftriaxone and azithromycin to treat suspected bronchitis -discontinue oxycodone Hyperkalemia - she did receive a dose of furosemide this morning with slight improvement. Will be getting some fluids early this afternoon. -Repeat potassium in a few hours Hypoglycemia with type 2 diabetes mellitus - blood sugar better this morning the patient is more obtunded today. -Hold glipizide, consider discontinuation -Continue metformin -4 times daily Accu-Cheks Thyroid nodules, left - incidental finding on the CT scan. evaluated with thyroid ultrasound today. Labs he could be considered for the largest nodule on teft side. -outpatient FNA of the left thyroid nodule Severe aortic stenosis - slightly hypotensive this morning. -hold diuretic Peripheral vascular disease with critical limb ischemia - legs are stable at this time with no evidence for infection. She has interventional radiology follow-up in 2.5 days. Maintenance issues - - DVT prophylaxis - enoxaparin - GI prophylaxis - not indicated - Nutrition - consistent carbohydrate - Encinas catheter - placed for strict intake and output monitoring with a critical patient CODE STATUS - DNR/DNI Admission justification - patient will be referred observation status for monitoring of blood sugars and extubated workup of thyroid nodules Disposition - I would anticipate discharge home with home care but patient may need transfer to a tertiary care center if she does not improve in the next day or so Primary care physician - Kranthi Mobley M.D.
[2019-07-25] MEDS ORDERED: Furosemide 40 MG/4 ML VIAL IVPUSH ONE (10:45)
--- NOTE | 2019-07-25 10:53 | CRLUS ---
INDICATION: Evaluate thyroid nodule seen on CT chest 07/24/2019. TECHNIQUE: Thyroid ultrasound. COMPARISON: CT chest 07/24/2019. FINDINGS: Right thyroid measures 4.0 x 2.1 x 1.8 cm and left thyroid measures 4.1 x 2.0 x 1.7 cm. Small densely calcified lesion measuring 4-5 mm in the right upper thyroid stable. Cystic lesion is mildly complex in the right mid thyroid measures 8 mm. 4 mm hypoechoic solid lesion in the right mid thyroid has blood flow confirmed to it. 5-6 mm solid lesion in the left upper thyroid. Densely calcified 1 cm lesion in the left mid thyroid. 1.9 cm hypoechoic solid lesion left lower thyroid correlates with the largest low-density lesion on CT. The other lesions described in the thyroid bilaterally are all unchanged from the CT. These lesions are all indeterminate. The largest lesion in the left thyroid could be sampled with ultrasound guidance if desired and the other lesions can be followed with future ultrasounds to ensure they do not enlarge. Remainder negative. IMPRESSION: Multiple lesions in the thyroid bilaterally varying from densely calcified to cystic to hypoechoic solid lesions. The largest of these measures 1.9 cm in the left lower thyroid. This lesion could be sampled with ultrasound guidance for diagnostic purposes if desired. Remainder lesions can be followed with future thyroid ultrasounds. The nodules are unchanged from the recent CT. Dictated by Rojas Sue MD @ Jul 25 2019 10:47AM Signed by Dr. Rojas Sue @ Jul 25 2019 10:51AM
[2019-07-25] MEDS ORDERED: Azithromycin 500 MG in Sodium Chloride 0.9% 250 ML IV SCH (11:00)
[2019-07-25] MEDS ORDERED: Sodium Chloride 0.9% 500 ML IV SCH (12:00)
[2019-07-25] MEDS ORDERED: Nystatin Crm 15 GM Tube TOP SCH (14:00)
--- NOTE | 2019-07-25 16:11 | PCM.DCSUM1 ---
Discharge Summary - Hospital Course Brief History: 74-year-old female with history of severe aortic stenosis, systolic congestive heart failure, peripheral arterial disease with critical limb ischemia who presented after an episode of unresponsiveness at home. She was admitted for observation with suspected hypoglycemia and mild hyperkalemia. - Discharge Data Discharge Date: 07/25/19 Discharge Disposition: 20 Preliminary Cause of *Q: Other_Special Instruction (natural causes) Condition: - Referral to Home Health Primary Care Physician: Kranthi Dubois MD - Discharge Diagnosis/Problem(s) (1) Hypoglycemia due to type 2 diabetes mellitus SNOMED Code(s): 601368987521812, 575053508566296 ICD Code: E11.649 - TYPE 2 DIABETES MELLITUS WITH HYPOGLYCEMIA WITHOUT COMA Status: Acute Current Visit: Yes (2) Severe aortic stenosis SNOMED Code(s): 87128880 ICD Code: I35.0 - NONRHEUMATIC AORTIC (VALVE) STENOSIS Status: Chronic Current Visit: No (3) Peripheral vascular disease of lower extremity with ulceration SNOMED Code(s): 132843490 ICD Code: I73.9 - PERIPHERAL VASCULAR DISEASE, UNSPECIFIED; L97.909 - NON- PRS CHRONIC ULC UNSP PRT OF UNSP LOW LEG W UNSP SEVERITY Status: Chronic Current Visit: No (4) Tobacco dependence syndrome SNOMED Code(s): 88628006 ICD Code: F17.200 - NICOTINE DEPENDENCE, UNSPECIFIED, UNCOMPLICATED Status : Chronic Current Visit: No - Patient Summary/Data Hospital Course: Анна presented to the emergency room after an episode of unresponsiveness at home. She was responsive by the time she made it to the emergency room. Workup in the emergency room revealed leukocytosis with a white blood cell count of more than 20,000 and a mild hypoglycemia with a glucose level of 59. Chest x- ray was obtained and did show some small bilateral effusions but appeared improved compared to the most recent chest x-ray. Vitals were stable with systolic pressures in the 90s which is her usual. She was admitted to the hospital for observation and repeat monitoring of her blood sugars with hypoglycemia suspected as the culprit. There is no obvious source of infection identified at the time of presentation. There were no acute issues overnight. Early the next morning after admission the patient had a decreased level of consciousness. Repeat laboratory testing revealed a slight increase in her potassium level up to 6.5 from 5.8. She was unable to swallow at the time so we gave her a dose of furosemide. White blood cell count was coming down and was at 15,000. Blood pressures were slightly low overnight but had improved back into the 90s like usual. After she received the furosemide her blood pressure did decline some and then rebounded again. She was evaluated shortly later and found to be moaning in discomfort but not interactive other than she would look at you when spoken to. Examination did recently concern for potential bronchitis type infection with a loose cough. Antibiotics including ceftriaxone and azithromycin were initiated. We did get some blood gases which showed a very mild acidosis but a normal PCO2. Troponin level was obtained and was mildly elevated at 0.1. An EKG was obtained which showed sinus rhythm with left anterior fascicular block and right bundle branch block similar to previous with no evidence for acute ischemia. Patient did receive a 500 mL bolus and had some improvement in her blood pressures with systolic pressures up around 80. At this point I was suspicious she had an infectious encephalopathy. plan was for additional fluid bolus but when nursing staff went back to check on the patient they found that she had . She was not attempting any spontaneous respirations and no pulse was palpable. I examined the patient shortly after this and how no active cardiac activity. The exact cause for her is not entirely clear. It did not appear that she was having a large cardiac event. Infection may have played a role though no definitive evidence for infection was found. It is noted that the patient was chronically quite ill with her severe aortic stenosis, systolic heart failure and severe peripheral arterial disease. She had a DO NOT RESUSCITATE order and no attempts at resuscitation were made per previously expressed wishes. - Discharge Plan Home Medications: Home Meds metFORMIN HCl [Metformin HCl] 1,000 mg PO BID #60 tablet 07/14/19 [Rx] glipiZIDE [Glipizide ER] 5 mg PO DAILY 07/24/19 [History] Forms: ED Department Discharge Referrals: Kranthi Dubois MD [Primary Care Provider] - - Discharge Summary/Plan Comment DC Time >30 min.: No - Patient Data Vitals - Most Recent: Last Vital Signs Temp 36.7 C 07/25/19 11:00 Pulse 66 07/25/19 12:00 Resp 16 07/25/19 12:00 BP 78/40 L 07/25/19 13:29 Pulse Ox 96 07/25/19 12:00 Weight - Most Recent: 63.049 kg I&O - Last 24 hours: Intake & Output 07/25/19 07/25/19 07/25/19 06:59 14:59 22:59 Intake Total 100 1050 Output Total 100 125 Balance 0 925 Lab Results - Last 24 hrs: Laboratory Results - last 24 hr 07/25/19 07/25/19 07/25/19 Range/Units 04:35 04:40 04:40 WBC 15.7 H (4.5-11.0) K/uL RBC 4.18 (3.30-5.50) M/uL Hgb 10.3 L (12.0-15.0) g/dL Hct 34.9 L (36.0-48.0) % MCV 84 (80-98) fL MCH 25 L (27-31) pg MCHC 30 L (32-36) % Plt Count 136 L (150-400) K/uL Puncture Site ABG pH (7.350-7.450) ABG pCO2 (35.0-42.0) mmHg ABG pO2 (75.0-100.0) mmHg ABG HCO3 (22.0-26.0) mmol/L ABG Total CO2 (21.0-25.0) mmol/L ABG O2 Saturation (95.0-98.0) % ABG O2 Content (15.0-23.0) %vol ABG Base Excess mm/L ABG Hemoglobin (12.0-16.0) g/dL ABG Oxyhemoglobin % ABG Carboxyhemoglobin (0.0-1.6) % ABG Methemoglobin % Arnaud Test O2 Delivery Device Sodium 126 L (140-148) mmol/L Potassium 6.5 H* (3.6-5.2) mmol/L Chloride 95 L (100-108) mmol/L Carbon Dioxide 23 (21-32) mmol/L Anion Gap 14.5 H (5.0-14.0) mmol/L BUN 49 H (7-18) mg/dL Creatinine 0.9 (0.6-1.0) mg/dL Est Cr Clr Drug Dosing 42.06 mL/min Estimated GFR (MDRD) > 60 (>60) Glucose 96 (74-106) mg/dL Calcium 8.1 L (8.5-10.1) mg/dL Troponin I (0.000-0.056) ng/mL Urine Color Yellow (YELLOW) Urine Appearance Clear (CLEAR) Urine pH 5.0 (5.0-8.0) Ur Specific [place] 1.015 (1.008-1.030) Urine Protein 30 H (NEGATIVE) mg/dL Urine Glucose (UA) Negative (NEGATIVE) mg/dL Urine Ketones Negative (NEGATIVE) mg/dL Urine Occult Blood Negative (NEGATIVE) Urine Nitrite Negative (NEGATIVE) Urine Bilirubin Small H (NEGATIVE) Urine Urobilinogen 0.2 (0.2-1.0) EU/dL Ur Leukocyte Esterase Trace H (NEGATIVE) Urine RBC 0-5 (0-5) Urine WBC 0-5 (0-5) Ur Epithelial Cells Few Amorphous Sediment Not seen Urine Bacteria Many Urine Mucus Not seen Urine Other 07/25/19 07/25/19 07/25/19 Range/Units 10:12 10:30 11:53 WBC (4.5-11.0) K/uL RBC (3.30-5.50) M/uL Hgb (12.0-15.0) g/dL Hct (36.0-48.0) % MCV (80-98) fL MCH (27-31) pg MCHC (32-36) % Plt Count (150-400) K/uL Puncture Site Lt brachial ABG pH 7.327 L (7.350-7.450) ABG pCO2 39.4 (35.0-42.0) mmHg ABG pO2 74.6 L (75.0-100.0) mmHg ABG HCO3 20.1 L (22.0-26.0) mmol/L ABG Total CO2 18.9 L (21.0-25.0) mmol/L ABG O2 Saturation 93.5 L (95.0-98.0) % ABG O2 Content 12.9 L (15.0-23.0) %vol ABG Base Excess -4.9 mm/L ABG Hemoglobin 10.1 L (12.0-16.0) g/dL ABG Oxyhemoglobin 90.0 % ABG Carboxyhemoglobin 3.0 H (0.0-1.6) % ABG Methemoglobin 0.7 % Arnaud Test Not performed O2 Delivery Device Room air Sodium (140-148) mmol/L Potassium 6.3 H* (3.6-5.2) mmol/L Chloride (100-108) mmol/L Carbon Dioxide (21-32) mmol/L Anion Gap (5.0-14.0) mmol/L BUN (7-18) mg/dL Creatinine (0.6-1.0) mg/dL Est Cr Clr Drug Dosing mL/min Estimated GFR (MDRD) (>60) Glucose (74-106) mg/dL Calcium (8.5-10.1) mg/dL Troponin I 0.104 H* (0.000-0.056) ng/mL Urine Color (YELLOW) Urine Appearance (CLEAR) Urine pH (5.0-8.0) Ur Specific [place] (1.008-1.030) Urine Protein (NEGATIVE) mg/dL Urine Glucose (UA) (NEGATIVE) mg/dL Urine Ketones (NEGATIVE) mg/dL Urine Occult Blood (NEGATIVE) Urine Nitrite (NEGATIVE) Urine Bilirubin (NEGATIVE) Urine Urobilinogen (0.2-1.0) EU/dL Ur Leukocyte Esterase (NEGATIVE) Urine RBC (0-5) Urine WBC (0-5) Ur Epithelial Cells Amorphous Sediment Urine Bacteria Urine Mucus Urine Other Med Orders - Current: Current Medications Acetaminophen (Tylenol) 650 mg PO Q4H PRN PRN Reason: Pain (Mild 1-3)/fever Last Admin: 07/24/19 23:40 Dose: 650 mg Albuterol (Proventil Neb Soln) 2.5 mg NEB Q4H PRN PRN Reason: Shortness Of Breath/wheezing Aspirin (Halfprin) 81 mg PO DAILY [facility] Last Admin: 07/25/19 10:22 Dose: Not Given Dimethicone/Zinc Oxide (Rash Relief-Zinc Oxide [place]) 0 gm TOP Q2H PRN PRN Reason: Rash Last Admin: 07/24/19 21:38 Dose: 1 applic Enoxaparin Sodium (Lovenox) 40 mg SUBCUT DAILY [facility] Last Admin: 07/25/19 09:34 Dose: 40 mg Furosemide (Lasix) 20 mg PO DAILY [facility] Last Admin: 07/25/19 10:23 Dose: Not Given Ceftriaxone Sodium 1 gm/ (Sodium Chloride) 50 mls @ 100 mls/hr IV Q24H [facility] Last Admin: 07/25/19 09:47 Dose: 100 mls/hr Azithromycin 500 mg/ Sodium (Chloride) 250 mls @ 250 mls/hr IV Q24H [facility] Last Admin: 07/25/19 11:21 Dose: 250 mls/hr Influenza Virus Vaccine (Fluzone High-Dose 2018- Syringe) 180 mcg IM .ONCE ONE Stop: 07/27/19 09:01 Magnesium Hydroxide (Milk Of Magnesia) 30 ml PO Q12H PRN PRN Reason: Constipation Melatonin (Melatonin) 9 mg PO BEDTIME PRN PRN Reason: Sleep Last Admin: 07/24/19 23:39 Dose: 9 mg Metformin HCl (Glucophage) 1,000 mg PO BIDAC [facility] Last Admin: 07/25/19 09:33 Dose: Not Given Morphine Sulfate (Morphine) 2 mg IVPUSH Q2H PRN PRN Reason: Pain (severe 7-10) Nystatin (Nystatin Crm) 0 gm TOP TID [facility] Ondansetron HCl (Zofran Odt) 4 mg PO Q6H PRN PRN Reason: Nausea able to take PO Ondansetron HCl (Zofran) 4 mg IV Q6H PRN PRN Reason: Nausea/Vomiting Senna/Docusate Sodium (Senna Plus) 1 tab PO BID PRN PRN Reason: Constipation Discontinued Medications Furosemide (Lasix) 20 mg IVPUSH ONETIME ONE Stop: 07/25/19 06:20 Last Admin: 07/25/19 06:40 Dose: 20 mg Furosemide (Lasix) 40 mg IVPUSH ONETIME ONE Stop: 07/25/19 10:46 Last Admin: 07/25/19 12:28 Dose: Not Given Sodium Chloride (Normal Saline) 1,000 mls @ 999 mls/hr IV ASDIRECTED [facility] Last Admin: 07/24/19 12:40 Dose: 999 mls/hr Sodium Chloride (Normal Saline) 1,000 mls @ 999 mls/hr IV ASDIRECTED [facility] Last Admin: 07/24/19 14:07 Dose: 999 mls/hr Sodium Chloride (Normal Saline) 1,000 mls @ 300 mls/hr IV ASDIRECTED [facility] Sodium Chloride (Normal Saline) 75 mls @ 0 mls/hr IV ASDIRECTED [facility] Last Admin: 07/24/19 14:30 Dose: 3 mls/hr Sodium Chloride (Normal Saline) 500 mls @ 500 mls/hr IV ASDIRECTED [facility] Stop: 07/25/19 13:01 Iopamidol (Isovue-300 (61%)) 100 ml IV . DIRECTED [facility] Last Admin: 07/24/19 14:30 Dose: 100 ml Oxycodone HCl (Oxycodone) 5 mg PO Q4H PRN PRN Reason: Pain (moderate 4-6) Last Admin: 07/25/19 07:27 Dose: 5 mg Sodium Chloride (Saline Flush) 10 ml FLUSH ONETIME ONE Stop: 07/24/19 14:03 Last Admin: 07/24/19 14:32 Dose: 10 ml Sodium Polystyrene Sulfonate (Kayexalate) 30 gm PO ONETIME ONE Stop: 07/25/19 05:28 Last Admin: 07/25/19 05:59 Dose: 15 gm *Q Meaningful Use (DIS) - VTE *Q VTE Mechanical Contraindications *Q: Bilateral Lower Ischemia
--- NOTE | 2019-08-07 18:49 | PCM.HP.2 ---
H&P History of Present Illness - General Date of Service: 07/24/19 Admit Problem/Dx: Admission Diagnosis/Problem Admission Diagnosis/Problem Hypoglycemia Source of Information: Patient, EMS History Limitations: Reports: No Limitations - History of Present Illness Initial Comments - Free Text/Narative: PT ARRIVED WITH MARKED WEAKNESS. sHE HAD FALLEN TO THE FLOOR AND DID LIE ON THE FLOOR FOR A UNKNOWN AMOUNT OF TIME. Onset of Symptoms: Reports: Today, Other (pT WAS FOUND ON THE FLOOR TODSY. sHE HAD MULTIPLE SORES AND REDNESS IN BOTH LEGS. sHE WAS RECENTLY HOPITALIZED. ) Duration of Symptoms: Reports: Hour(s): Location: Reports: Chest, Other (PT IS HAVING MARKED SOB. ) Worsens with: Reports: Breathing Associated Symptoms: Reports: Chest Pain, Shortness of Breath, Other (MARKED WEAKNESS. ) - Related Data Allergies/Adverse Reactions: Allergies Allergy/AdvReac Type Severity Reaction Status Date / Time niacin Allergy Respiratory Verified 07/24/19 12:21 Distress Home Medications: Home Meds metFORMIN HCl [Metformin HCl] 1,000 mg PO BID #60 tablet 07/14/19 [Rx] glipiZIDE [Glipizide ER] 5 mg PO DAILY 07/24/19 [History] Past Medical History HEENT History: Reports: Impaired Vision Cardiovascular History: Reports: High Cholesterol, Hypertension Respiratory History: Reports: Other (See Below) Other Respiratory History: wet cough since april Gastrointestinal History: Reports: Other (See Below) Other Gastrointestinal History: colo guard negative DB2 DBA History: Reports: Musculoskeletal History: Reports: Fracture Other Musculoskeletal History: R foot fx, L shoulder fx, R hand fx Psychiatric History: Reports: Anxiety Endocrine/Metabolic History: Reports: Diabetes, Type II Dermatologic History: Reports: Other (See Below) Other Dermatologic History: weeping sores on lets - Infectious Disease History Infectious Disease History: Reports: Chicken Pox, Measles Other Infectious Disease History: pt states she is unsure about hepatitis infection? - Past Surgical History Head Surgeries/Procedures: Reports: None HEENT Surgical History: Reports: Tonsillectomy Cardiovascular Surgical History: Reports: None Respiratory Surgical History: Reports: None GI Surgical History: Reports: None Endocrine Surgical History: Reports: None Neurological Surgical History: Reports: None Musculoskeletal Surgical History: Reports: None Dermatological Surgical History: Reports: None Social & Family History - Family History Endocrine/Metabolic: Reports: Diabetes, type II - Tobacco Use Smoking Status *Q: Current Every Day Smoker Years of Tobacco use: 60 Packs/Tins Daily: 0.5 Used Tobacco, but Quit: No Second Hand Smoke Exposure: No - Caffeine Use Caffeine Use: Reports: Coffee - Recreational Drug Use Recreational Drug Use: No H&P Review of Systems - Review of Systems: Review Of Systems: See Below Free Text/Narrative: PT WAS FOUND ON THE FLOOR ND HAD BEEN THERE FOR A UNKNOWN AMOUNT OF TIME. sHE WAS VERY WEAK. hER LEGS ARE VERY RED AND SHE HAS SIG SWELLING. General: Reports: No Symptoms HEENT: Reports: No Symptoms Pulmonary: Reports: Shortness of Breath, Wheezing, Cough Cardiovascular: Reports: Syncope Gastrointestinal: Reports: No Symptoms Genitourinary: Reports: Other ( URINE SMELLS FOUL) Musculoskeletal: Reports: No Symptoms Skin: Reports: No Symptoms Psychiatric: Reports: Anxiety Neurological: Reports: No Symptoms Hematologic/Lymphatic: Reports: No Symptoms Immunologic: Reports: No Symptoms Review of Systems Comment:: PT WAS EVALUATED AND FELT THAT SHE DEFINITELY NEEDED ADMISSION. Exam - Exam Exam: See Below - Vital Signs Vital Signs: Last Vital Signs Temp 36.7 C 07/25/19 11:00 Pulse 66 07/25/19 12:00 Resp 16 07/25/19 12:00 BP 78/40 L 07/25/19 13:29 Pulse Ox 96 07/25/19 12:00 Weight: 63.049 kg - Exam General: Alert, Oriented, Cooperative HEENT: Other Lungs: Crackles, Rales, Wheezing Cardiovascular: Regular Rate GI/Abdominal Exam: Soft, Non-Tender (Female) Exam: Deferred Rectal (Female) Exam: Deferred Back Exam: Normal Inspection Extremities: Other (pt has very red legs bilaterally with alot of edema. There is open ulcers present. ) Skin: Other (multiple open ulcers on her lower legs. ) Neuro Extensive - Mental Status: Oriented x3 Psychiatric: Alert, Anxious Physical Exam Comments:: PT WAS FOUND TO HAVE A ELEVATED WBC. sHE WAS SOB. sHE HAD BEEN LYING ON THE FLOOR AND HER LEGS WERE RED AND HOT. aDMIT TO dR MOBLEY. - Patient Data Result Diagrams: 07/25/19 04:40 07/25/19 10:30 *Q Meaningful Use (ADM) - VTE *Q VTE Mechanical Contraindications *Q: Bilateral Lower Ischemia Problem List Initiated/Reviewed/Updated: Yes Assessment/Plan Comment:: ASSESSMENT AND PLAN - Hypoactive delirium, acute - suspect infectious etiology. Mild metabolic acidosis but no CO2 retention on ABGs. Bronchitis is most highly suspicious for infectious source. possibly some contribution from pain medications. Troponin is mildly elevated probably related to demand ischemia. No ischemia on the EKG. -Ceftriaxone and azithromycin to treat suspected bronchitis -discontinue oxycodone Hyperkalemia - she did receive a dose of furosemide this morning with slight improvement. Will be getting some fluids early this afternoon. -Repeat potassium in a few hours Hypoglycemia with type 2 diabetes mellitus - blood sugar better this morning the patient is more obtunded today. -Hold glipizide, consider discontinuation -Continue metformin -4 times daily Accu-Cheks Thyroid nodules, left - incidental finding on the CT scan. evaluated with thyroid ultrasound today. Labs he could be considered for the largest nodule on teft side. -outpatient FNA of the left thyroid nodule Severe aortic stenosis - slightly hypotensive this morning. -hold diuretic Peripheral vascular disease with critical limb ischemia - legs are stable at this time with no evidence for infection. She has interventional radiology follow-up in 2.5 days. Maintenance issues - - DVT prophylaxis - enoxaparin - GI prophylaxis - not indicated - Nutrition - consistent carbohydrate - Encinas catheter - placed for strict intake and output monitoring with a critical patient CODE STATUS - DNR/DNI Admission justification - patient will be referred observation status for monitoring of blood sugars and extubated workup of thyroid nodules Disposition - I would anticipate discharge home with home care but patient may need transfer to a tertiary care center if she does not improve in the next day or so Primary care physician - Kranthi Mobley M.D.
== END 2019-07-25 13:30 | disposition expired ==
LOC: JP.ED 12:12 → JP.MS 15:17
PROVIDERS: ADMIT Internal Medicine; ATTEND Internal Medicine
DX: E11.649 Type 2 diabetes mellitus with hypoglycemia without coma (principal); E78.00 Pure hypercholesterolemia, unspecified; I10 Essential (primary) hypertension; I35.0 Nonrheumatic aortic (valve) stenosis; I73.9 Peripheral vascular disease, unspecified; E04.2 Nontoxic multinodular goiter; F17.210 Nicotine dependence, cigarettes, uncomplicated; Z88.8 Allergy status to other drugs, medicaments and biological substances
CPT/HCPCS: 36415; 51701; 51702; 71045; 71260; 76536; 80048; 80053; 81001; 82550; 82803; 82962; 84132; 84484; 85025; 85027; 87086; 87088; 87186; 93005; 93010; 96361; 96365; 96367; 96372; 96375; 99217; 99218; 99285; A9270; G0378; J0456; J0696; J1650; J1940; J7030; J7050; Q9967; 96360